=== PATIENT | male | born 1980 | race Caucasian/White ===

== ENCOUNTER 2022-01-14 11:18 | Emergency (ER) | payer SELFPAY ==
--- OUTSIDE RECORDS SUMMARY | 2022-01-14 11:28 | XMS REPORT | Continuity of Care Document ---
:1980 Author Organization [facility] t Address [address] [place] [address] Care Team Providers Name Role Phone PCP, PATIENT DOES NOT HAVE A Primary Care Physician UnavailPATRICE Frias Attending Clinician Unavailable Patrice Arita MD Attending Clinician TEJA STOLL Attending Clinician Unavailable Teja Stoll MD Attending Clinician RAGHAVENDRA WHITNEY Attending Clinician Unavailable Raghavendra Whitney MD Attending Clinician Reginald Mathias MD Attending Clinician Musa Parikh DO Attending Clinician Juarez Rivas Attending Clinician Doctor Unassigned, [place] Attending Clinician Unavailable PATRICE ARITA Admitting Clinician Unavailable TEJA STOLL Admitting Clinician Unavailable RAGHAVENDRA WHITNEY Admitting Clinician Unavailable Payers Payer Name Policy Type Policy Number Effective Date Expiration Date S ource Problems Condition Condition Condition Status Onset Resolution Last Treating Co mments Source Name Details Category Date Date Treatment Clinician Date Abdominal Abdominal Disease Active Overview: Univers pain, pain, 07-20 Formattin ity of right right 00:00: g of this [facility] 00 note Medical quadrant quadrant might be Bran ch different from the original. Added automatic ally from request for surgery [id number] Allergies, Adverse Reactions, Alerts Allergy Allergy Status Severity Reaction(s) Onset Inactive Treating Comm ents Source Name Type Date Date Clinician SULFA Drug Active Anaphylaxis Unive rs (SULFONA Class 5-01 ity of MIDE 00:00: [place] ANTIBIOT 00 Medical ICS) Branch Sulfa Propensi Active Anaphylaxis Uni vers (Sulfona ty to 5-01 ity of mide adverse 00:00: [place] Antibiot reaction 00 Medica l ics) s Branch Sulfa Propensi Active Anaphylaxis Uni vers (Sulfona ty to 5-01 ity of mide adverse 00:00: [place] Antibiot reaction 00 Medica l ics) s Branch Social History Social Habit Start Date Stop Date Quantity Comments Source Exposure to 2021-12-13 2021-12-23 Not sure [facility] SARS-CoV-2 (event) 00:00:00 14:29:00 Medica l Branch Sex Ass[birth year] At [birth year] [facility] 00:00:00 00:00:00 Medical Branch Smoking Status Start Date Stop Date Source Tobacco smoking consumption [facility] Medical unknown Branch Medications Ordered Filled Start Stop Current Ordering Indication Dosage Frequency Signature Comments Components Source Medication Medication Date Date Medication? Clinician (SIG) Name Name maalox:diph 2021-02- No 15mL 15 mL, Uni vers enhydrAMINE 02-22 Oral, ity of :lidocaine 22:15: 22:14 ONCE, 1 Nicholas as 2 % viscous 00 :00 dose, On Medi sharmila 1:1:1 Fri Branch (FIRST[facility]OUT 12/23/21 at [facility]) 1715, oral Routine suspension 15 mL NaCl 0.9% 2021-02- No 1000mL at 999 Uni vers (NS) IV 02-20 mL/hr, ity of infusion 06:15: 06:48 [place]ven[place] 1,000 mL 00 :00 s, ONCE, 1 Medic al dose, On Branch 12/21/21 at 0115, JEAN PIERRE LORazepam 2021-02- No 1mg 1 mg, Slow U nivers (ATIVAN) 02-20 IV Push, ity of injection 1 05:15: 05:24 ONCE, 1 [place] mg 00 :00 dose, On Medical Wed Branch 12/21/21 at 0015, STAT ibuprofen Yes [id number] 800mg Take 1 Un ajit 800 mg 9-04 tablet by ity of tablet 00:00: mouth [place] 00 every 6 Medical (six) Branch hours as needed for Pain (scale 4-6). ibuprofen 0 202- No [id number] 800mg Take 1 U nivers 800 mg 9-05 30- tablet by ity of tablet 00:00: 00:00 mouth [place] 00 :00 every 6 Medical (six) Branch hours as needed for Pain (scale 4-6). azithromyci Yes [id number] 250mg Take 1 Univers n 5-03 tablet by ity of (ZITHROMAX 00:00: mouth [place] Z-TRENT) 250 00 SEE-INSTRU Med ical mg tablet CTIONS. Branch Take 500 mg day 1, then 250 mg days 2 to 5. predniSONE Yes [id number] 40mg Take 2 U nivers 20 mg 5-03 tablets by ity of tablet 00:00: mouth [place] 00 daily. Medical Branch albuterol Yes [id number] 2{puff} Inhale 2 Univers 90 5-03 Puffs ity of mcg/actuati 00:00: every 4 [place] as on inhaler 00 (four) Medical hours as Branch needed for Wheezing or Shortness of Breath. azithromyci Yes [id number] 250mg Take 1 Univers n 5-03 tablet by ity of (ZITHROMAX 00:00: mouth [place] Z-TRENT) 250 00 SEE-INSTRU Med ical mg tablet CTIONS. Branch Take 500 mg day 1, then 250 mg days 2 to 5. predniSONE Yes [id number] 40mg Take 2 U nivers 20 mg 5-03 tablets by ity of tablet 00:00: mouth [place] 00 daily. Medical Branch albuterol Yes [id number] 2{puff} Inhale 2 Univers 90 5-03 Puffs ity of mcg/actuati 00:00: every 4 Nicholas as on inhaler 00 (four) Medical hours as Branch needed for Wheezing or Shortness of Breath. albuterol Yes [id number] 2{puff} Inhale 2 Univers 90 5-03 Puffs ity of mcg/actuati 00:00: every 4 Nicholas as on inhaler 00 (four) Medical hours as Branch needed for Wheezing or Shortness of Breath. albuterol Yes [id number] 2{puff} Inhale 2 Univers 90 5-03 Puffs ity of mcg/actuati 00:00: every 4 Nicholas as on inhaler 00 (four) Medical hours as Branch needed for Wheezing or Shortness of Breath. azithromyci 2021- No [id number] 250mg Take 1 Univers n 06-21 tablet by ity of (ZITHROMAX 00:00: 00:00 mouth [place] Z-TRENT) 250 00 :00 SEE-INSTRU Med ical mg tablet CTIONS. Branch Take 500 mg day 1, then 250 mg days 2 to 5. predniSONE 2021- No [id number] 40mg Take 2 Univers 20 mg 06-21 tablets by ity of tablet 00:00: 00:00 mouth [place] 00 :00 daily. Medical Branch ibuprofen 2020- No 600mg 600 mg, Uni vers (IBU) 03-18 Oral, ity of tablet 600 21:30: 09:29 ONCE, 1 Nicholas as mg 00 :00 dose, [facility] 03/18/20 at Branch 1530, JEAN PIERRE ibuprofen Yes [id number] 600mg Take 1 Univers 600 mg 03-18 [id number] tablet by ity of tablet 00:00: mouth [place] 00 every 6 Medical (six) Branch hours as needed for Pain (scale 4-6). ibuprofen Yes [id number] 600mg Take 1 Univers 600 mg 03-18 [id number] tablet by ity of tablet 00:00: mouth [place] 00 every 6 Medical (six) Branch hours as needed for Pain (scale 4-6). ibuprofen Yes [id number] 600mg Take 1 Univers 600 mg - [id number] tablet by ity of tablet 00:00: mouth [place] 00 every 6 Medical (six) Branch hours as needed for Pain (scale 4-6). ibuprofen Yes [id number] 600mg Take 1 Univers 600 mg - [id number] tablet by ity of tablet 00:00: mouth [place] 00 every 6 Medical (six) Branch hours as needed for Pain (scale 4-6). ibuprofen 2021- No [id number] 600mg Take 1 Univers 600 mg 03-18 [id number] tablet by arianna o f tablet 00:00: 00:00 [facility] [place] 00 :00 every 6 Medical (six) Branch hours as needed for Pain (scale 4-6). No known No Univers medications ity [facility] No known No Univers medications ity [facility] No known No [facility] Signs Vital Name Observation Time Observation Value Comments Source Heart rate 2021-12-23 22:15:00 95 /min [facility]i ty [facility] [place] [facility] Oxygen saturation in 2021-12-23 22:15:00 98 /min University of Arterial blood by [facility] Pulse oximetry Branch Systolic blood 2021-12-23 19:30:00 135 mm[Hg] Univer sity of [facility] Diastolic blood 2021-12-23 19:30:00 99 mm[Hg] Unive rsity of [facility] Body temperature 2021-12-23 19:30:00 36.61 [facility] Univ ers[facility] [place] [facility] Respiratory rate 2021-12-23 19:30:00 20 /min Univ ers[facility] Body weight 2021-12-23 19:30:00 65.772 kg Universi ty [facility] [place] [facility] BMI 2021-12-23 19:30:00 23.40 kg/m2 Universi ty [facility] Heart rate 2021-12-21 07:45:00 108 /min Universi ty [facility] [place] [facility] Respiratory rate 2021-12-21 07:45:00 18 /min [facility] O[facility] saturation in 2021-12-21 07:45:00 100 /min University of Arterial blood by [facility] Pulse oximetry Branch Systolic blood 2021-12-21 06:01:00 136 mm[Hg] Univer sity of [facility] Diastolic blood 2021-12-21 06:01:00 86 mm[Hg] Unive rsity of [facility] Body temperature 2021-12-21 04:48:00 36.89 [facility] Univ [facility] [place] [facility] Body height 2021-12-21 04:48:00 167.6 cm Universi ty [facility] [place] [facility] Body weight 2021-12-21 04:48:00 65.772 kg [facility]i [facility] [place] [facility] BMI 2021-12-21 04:48:00 23.40 kg/m2 [facility] [place] [facility] Heart rate 2021-10-24 02:37:00 122 /min [facility] [place] [facility] Body temperature 2021-10-24 02:37:00 37.56 [facility] [place] [facility] Respiratory rate 2021-10-24 02:37:00 18 /min Univ [facility] [place] [facility] Body height 2021-10-24 02:37:00 167.6 cm [facility] [place] [facility] Body weight 2021-10-24 02:37:00 68.04 kg [facility] [place] [facility] BMI 2021-10-24 02:37:00 24.21 kg/m2 [facility] [place] [facility] Oxygen saturation in 2021-10-24 02:37:00 98 /min University of Arterial blood by [facility] Pulse oximetry Branch Systolic blood 2020-06-21 16:52:00 112 mm[Hg] Univer sity of [facility] [place] [facility] Diastolic blood 2020-06-21 16:52:00 88 mm[Hg] Unive rsity [facility] [place] [facility] Heart rate 2020-06-21 16:52:00 79 /min [facility] [place] [facility] Body temperature 2020-06-21 16:52:00 36.5 [facility] [place] [facility] Respiratory rate 2020-06-21 16:52:00 18 /min Univ [facility] [place] [facility] Body weight 2020-06-21 16:52:00 58.968 kg [facility] [place] [facility] BMI 2020-06-21 16:52:00 22.31 kg/m2 [facility] [place] [facility] Oxygen saturation in 2020-06-21 16:52:00 99 /min University of Arterial blood by [facility] Pulse oximetry Branch Systolic blood 2020-04-01 16:34:00 120 mm[Hg] Univer sity [facility] [place] [facility] Diastolic blood 2020-04-01 16:34:00 76 mm[Hg] Unive rsity [facility] [place] [facility] Heart rate 2020-04-01 16:34:00 84 /min [facility] [place] [facility] Body temperature 2020-04-01 16:34:00 36.94 [facility] [place] [facility] Respiratory rate 2020-04-01 16:34:00 18 /min Univ [facility] [place] [facility] Body weight 2020-04-01 16:34:00 58.968 kg [facility] [place] [facility] BMI 2020-04-01 16:34:00 22.31 kg/m2 [facility] [place] [facility] Oxygen saturation in 2020-04-01 16:34:00 100 /min University of Arterial blood by [facility] sharmila Pulse oximetry Branch Heart rate 2020-03-18 19:45:00 81 /min [facility] [place] [facility] Respiratory rate 2020-03-18 19:45:00 24 /min Univ [facility] [place] [facility] Oxygen saturation in 2020-03-18 19:45:00 97 /min University of Arterial blood by [facility] sharmila Pulse oximetry Branch Body temperature 2020-03-18 19:10:00 36.78 [facility] [place] [facility] Body height 2020-03-18 19:10:00 162.6 cm [facility] [place] [facility] Body weight 2020-03-18 19:10:00 58.968 kg [facility] [place] [facility] BMI 2020-03-18 19:10:00 22.31 kg/m2 [facility] [place] [facility] Systolic blood 2020-03-18 19:08:00 130 mm[Hg] Univer sity [facility] [place] [facility] Diastolic blood 2020-03-18 19:08:00 98 mm[Hg] Unive rsity [facility] [place] [facility] Systolic blood 2019-10-29 11:05:00 125 mm[Hg] Univer [facility]ity [facility] [place] [facility] Diastolic blood 2019-10-29 11:05:00 65 mm[Hg] Unive rs[facility] [place] [facility] Heart rate 2019-10-29 11:05:00 114 /min [facility] [place] [facility] Body temperature 2019-10-29 11:05:00 36.61 [facility] [place] [facility] Respiratory rate 2019-10-29 11:05:00 20 /min Univ [facility] [place] [facility] Body weight 2019-10-29 11:05:00 63.504 kg [facility] [place] [facility] BMI 2019-10-29 11:05:00 21.93 kg/m2 [facility] [place] [facility] Oxygen saturation in 2019-10-29 11:05:00 99 /min University of Arterial blood by [facility] Pulse oximetry Branch Procedures Procedure Date / Time Performing Clinician Source Performed URINE DRUG (IMMUNOASSAY) 2021-12-23 20:38:00 Patrice Arita [facility] DRUG [facility] SCREEN URINALYSIS 2021-12-23 20:07:00 Patrice Arita [facility] LIPASE 2021-12-23 20:01:00 Patrice Arita [facility] TROPONIN I 2021-12-23 20:01:00 Patrice Arita [facility] COMP. METABOLIC PANEL 2021-12-23 20:01:00 Patrice Arita [facility] ([id number]) [facility] CBC WITH DIFF 2021-12-23 20:01:00 Patrice Arita [facility] XR CHEST 2 VW 2021-12-23 19:52:23 Patrice Arita [facility] CONSENT/REFUSAL FOR 2021-12-23 19:09:39 Doctor Unassigned, No Un [facility] DIAGNOSIS AND TREATMENT Name [facility] EKG-12 LEAD 2021-12-21 08:05:19 Teja Stoll [facility] URINALYSIS 2021-12-21 06:48:00 Teja Stoll [facility] URINE DRUG (IMMUNOASSAY) 2021-12-21 06:48:00 [facility] X[facility] CHEST 2 VW 2021-12-21 05:20:08 Teja Stoll [facility] LIPASE 2021-12-21 05:01:00 Teja Stoll [facility] TROPONIN I 2021-12-21 05:01:00 Teja Stoll [facility] COMP. METABOLIC PANEL 2021-12-21 05:01:00 Teja Stoll [facility] ([id number]) [facility] CBC WITH DIFF 2021-12-21 05:01:00 Teja Stoll [facility] NOTICE OF PRIVACY 2021-12-21 04:44:04 [facility]REFUSAL FOR 2021-12-21 04:42:41 Doctor Unassigned, No Un [facility] [place] DIAGNOSIS [facility] TREATMENT Name Medical Branch XR ELBOW <3 VW RIGHT 2021-10-24 03:19:[address] [facility] NOTICE OF PRIVACY 2021-10-24 02:35:27 Doctor Unassigned, No [facility] CONSENT/REFUSAL FOR 2021-10-24 02:32:49 Doctor Unassigned, No Un [facility] [place] DIAGNOSIS AND TREATMENT Name Medical Branch XR CHEST 2 VW 2020-06-21 17:20:34 [facility] METABOLIC PANEL 2020-04-01 18:20:00 Musa Parikh [facility] ([id number]) Medical Branch ETHANOL 2020-04-01 18:20:00 Parikh, [facility] [place] [facility] CT HEAD WO CONTRAST 2020-04-01 17:54:03 Musa Parikh [facility] SALICYLATE 2020-04-01 17:31:00 Singer [facility] XR CHEST 1 VW 2020-03-18 20:02:51 Markus, [facility] XR HAND <3 VW RIGHT 2020-03-18 20:02:51 Juarez Aparicio [facility] XR WRIST <3 VW RIGHT 2020-03-18 20:02:51 Juarez Aparicio [facility] HEAD WO CONTRAST 2020-03-18 19:52:26 Juarez Aparicio [facility] EMERGENCY DEPARTMENT 2019-12-05 05:01:00 [facility]igned, [facility] Name Medical Branch AR RESUP NPTERF WND BODY 2019-10-29 11:39:00 Raghavendra Whitney [facility] [place] 2.6-7.5 CM Medical Branch AMENDMENT REQUEST/DENIAL 2016-04-16 06:01:00 Doctor Unassigned, No [facility] Encounters Start End Encounter Admission Attending Care Care Encounter Source Date/Time Date/Time Type Type Clinicians Facility Department ID 2020-12-19 Emergency [facility] [id number] Univers 16:43:23 [facility] 2020-12-18 Emergency [facility] [id number] Univers 23:03:45 [facility] 2020-12-18 Emergency [facility] [id number] Univers 20:20:27 [facility] 2020-12-17 Emergency [facility] [id number] Univers 16:30:30 [facility] 2021-12-23 2021-12-23 [facility] ERT [id number] Univers 14:15:00 18:00:00 PATRICE [facility] 2021-12-23 2021-12-23 Emergency [facility] [id number] Univers 14:15:00 18:00:00 Patrice ZABALA [id number] i ty Kali LEIVA 4.2.7.2.686 [facility] [id number] [address] 2021-12-20 2021-12-21 Emergency X DODIE, [facility] ERT [id number] Univers 23:58:00 03:22:00 TEJA [facility] 2021-12-20 2021-12-21 Emergency Dodie, [facility] [id number] Univers 23:58:00 03:22:00 Teja ZABALA [id number] ity [facility] 4.2.7.2.686 [facility] [id number] [address] 2021-10-23 2021-10-23 Emergency [facility] ERT [id number] Univers 21:43:00 23:15:00 FABRICIOLI ity of [facility] 2021-10-23 2021-10-23 Emergency [facility] [id number] Univers 21:43:00 23:15:00 Keyurizzygilma Hazel VJ [id number] ity of [place] 4.2.7.2.686 [facility] [id number] [address] 2020-06-212020-06-21 Emergency Stew, [facility] [id number] Univers 11:55:00 13:03:00 Reginald Zabala [id number] i ty of [place] 4.2.7.[address] [facility] [id number] [place] [address] Branch 2020-04-01 2020-04-01 Emergency , [facility] [id number] Univers 10:47:00 13:47:00 Musa Vj 350.1.13.10 i ty of [place] 4.2.7.[address] [facility] [id number] [place] [address] Branch 2020-03-18 2020-03-18 Emergency Reginald Mathias [facility] [id number] Univers 13:07:00 14:37:00 Juarez Aparicio 350.1.13.10 ity of [place] 4.2.7.[address] [facility] [id number] [place] [address] Branch 2019-12-05 2019-12-05 Orders Doctor GERHARD [id number] Univers 00:00:00 00:00:00 Only Unassigned, KRISTINE [id number] ity of [place] [facility] 4.2.7.2.686 Nicholas as [id number] [place] [address] Branch 2019-10-29 2019-10-29 Emergency [facility] [id number] Univers 05:57:00 06:39:00 Raghavendra Zabala [id number] ity of [place] 4.2.7.2.686 [facility] [phone] [place] [address] Branch 2016-04-16 2016-04-16 Orders Doctor GERHARD [id number] Univers 00:00:00 00:00:00 Only Unassigned, KRISTINE [id number] ity of [place] [facility] 4.2.7.2.686 [place] as [id number] [address] Results Test Description Test Time Test Comments Results Result Comments Source TROPONIN I 2021-12-21 05:39:18 Test Item Value Reference Range Interpretation Comme nts TROPONIN I (test code = 0.006 ng/mL See_Comment [Au tomated message] The 5598064252) system which ge nerated this result tra nsmitted reference range : <=0.034. The reference r natasha was not used to int erpret this result as normal/abnormal . ROXANNA (test code = ROXANNA) Reference (Normal) Range (defined by the 99th percentile reference limit): <= 0.034 ng/mL Note: Cardiac troponin begins to rise 3-4 hours after the onset of ischemia. Repeat in 4-6 hours if the sample was drawn within 3-4 hours of the onset of the symptom and found normal. Diagnosis of myocardial injury is made with acute changes in cTn concentrations with at least one serial sample above the 99th percentile upper reference limit (URL), taken together with the patient's clinical presentation. Biotin has been reported to cause a negative bias, interpret results relative to patient's use of biotin. Lab Interpretation Normal (test code = 14884-1) [facility]. METABOLIC PANEL ([id number])2021-12-21 05:28:02 Test Item Value Reference Range Interpretation Comments NA (test code = 137 mmol/L 135-145 3234208562) K (test code = 4.3 mmol/L 3.5-5.0 4375473970) CL (test code = 101 mmol/L 98-108 1132207220) CO2 TOTAL (test code = 22 mmol/L 23-31 L 3258241484) AGAP (test code = 2-16 1902229425) BUN (test code = 13 mg/dL 7-23 0400824914) GLUCOSE (test code = 140 mg/dL 70-110 H 6407010785) CREATININE (test code = 1.18 mg/dL 0.60-1.25 4634390178) TOTAL BILI (test code = 1.2 mg/dL 0.1-1.1 H 9691455217) CALCIUM (test code = 10.5 mg/dL 8.6-10.6 0976126223) T PROTEIN (test code = 8.6 g/dL 6.3-8.2 H 6590323157) ALBUMIN (test code = 5.3 g/dL 3.5-5.0 H 2834517869) ALK PHOS (test code = 79 U/L 34-122 2274329111) ALTv (test code = 22 U/L 5-50 1742-6) AST(SGOT) (test code = 34 U/L 13-40 8413284771) eGFR (test code = mL/min/1.73m2 9889174082) ROXANNA (test code = ROXANNA) Association of Glomerular Filtration Rate (GFR) and Staging of Kidney Disease* + --+ --+ ------+| GFR (mL/min/1.73 m2) ?| With Kidney Damage ?| ?Without Kidney Damage+ --------+ --------+ +| ?>90 ?| ?Stage one ?| ? Normal ?+ ---+ ---+ -------+| ?60-89 ?| ?Stage two ?| ? Decreased GFR ? + --+ --+ ------+| ?30-59 ?| ?Stage three ?| ? Stage three ? + --+ --+ ------+| ?15-29 ?| ?Stage four ? | ? Stage four ?+ ---+ ---+ -------+| ?<15 (or dialysis) ? ?| ?Stage five ? | ? Stage five ?+ ---+ ---+ -------+ *Each stage assumes the associated GFR level has been in effect for at least three months. ?Stages 1 to 5, with or without kidney disease, indicate chronic kidney disease. Notes: Determination of stages one and two (with eGFR >59mL/min/1.73 m2) requires estimation of kidney damage for at least three months as defined by structural or functional abnormalities of the kidney, manifested by either:Pathological abnormalities or Markers of kidney damage (including abnormalities in the composition of the blood or urine or abnormalities in imaging tests). Lab Interpretation Abnormal (test code = 51346-6) [facility]17 Test Item Value Reference Range Interpretation Comments LIPASE (test code = 2067103221) 92 U/L 0-220 Lab Interpretation (test code = Normal 26884-8) [facility] [id number] 05:15:01 Test Item Value Reference Range Interpretation Comments WBC (test code = See_Comment [Automated 2890-2) message] The sy stem which generated this result transmitted reference range : 4.20 - 10.70 10*3/?L. The reference range was not used to interpret this result as normal/abnormal . RBC (test code = See_Comment [Automated 789-8) message] The sy stem which generated this result transmitted reference range : 4.26 - 5.52 10*6/?L. The reference range was not used to interpret this result as normal/abnormal . HGB (test code = 17.2 g/dL 12.2-16.4 H 718-7) HCT (test code = 48.2 % 38.4-49.3 4544-3) MCV (test code = 88.9 fL 81.7-95.6 787-2) MCH (test code = 31.7 pg 26.1-32.7 785-6) MCHC (test code = 35.7 g/dL 31.2-35.0 H 786-4) RDW-SD (test code = 38.5 fL 38.5-51.6 49395-5) RDW-CV (test code = 11.9 % 12.1-15.4 L 788-0) PLT (test code = See_Comment H [Automated 777-3) message] The sy stem which generated this result transmitted reference range : 150 - 328 10*3/ ?L. The reference r natasha was not used to interpret this result as normal/abnormal . MPV (test code = 9.5 fL 9.8-13.0 L 08936-7) NRBC/100 WBC (test See_Comment [Automat ed code = 7869873924) message] The system which generated this result transmitted reference range : 0.0 - 10.0 /100 WBCs. The refer ence range was not u sed to interpret th is result as normal/abnormal . NRBC x10^3 (test code See_Comment [Auto mated = 5624992518) message] The s ystem which generated this result transmitted reference range : 10*3/?L. The reference range was not used to interpret this result as normal/abnormal . GRAN MAT (NEUT) % 58.8 % (test code = 770-8) IMM GRAN % (test code 0.40 % = 2931584279) LYMPH % (test code = 29.2 % 736-9) MONO % (test code = 10.1 % 5905-5) EOS % (test code = 0.8 % 713-8) BASO % (test code = 0.7 % 706-2) GRAN MAT x10^3(ANC) 5.84 10*3/uL 1.99-6.95 (test code = 3676072213) IMM GRAN x10^3 (test 0.04 10*3/uL 0.00-0.06 code = 4193171053) LYMPH x10^3 (test code 2.90 10*3/uL 1.09-3.23 = 731-0) MONO x10^3 (test code 1.00 10*3/uL 0.36-1.02 = 742-7) EOS x10^3 (test code = 0.08 10*3/uL 0.06-0.53 711-2) BASO x10^3 (test code 0.07 10*3/uL 0.01-0.09 = 704-7) Lab Interpretation Abnormal (test code = 20901-9) [facility] 2 [id number] 17:28:22 No acute cardiopulmonary abnormality. Emphysematous changes. Preliminary Report Dictated by Resident: Durga Ward MD., have reviewed this study and agree with theabove report.EXAM: XR CHEST 2 VW HISTORY: 39 years-old Male; chest pain left upper chest pain and shortnessof breath starting 2 hours ago. TECHNIQUE: Frontal and lateral views of the chest. COMPARISON: Chest radiog raph dated 03/18/2020, 07/20/2017 FINDINGS: The lungs are clear and hyperinflated. Bullous changes are redemonstratedin the right lung apex. Bibasilar apical thickening is noted. No focalconsolidation, pleural effusion, or pneumothorax is visualized. The cardiomediastinal silhouette is normal. No acute osseous abnormality is present. [facility], [facility]iant Results Inft User - 06/21/2020 12:29 PM CDTEXAM: XR CHEST 2 VWHISTORY: 39 years-old Male; chest pain left upper chest pain and shortnessof breath starting 2 hours ago.TECHNIQUE: Frontal and lateral views of the chest.COMPARISON: Chest radiograph dated 03/18/2020, 07/20/2017FINDINGS:The lungs are clear and hyperinflated. Bullous changes are redemonstratedin theright lung apex. Bibasilar apical thickening is noted. No focalconsolidation, pleural effusion, or pneumothorax is visualized. The cardiomediastinal silhouette is normal. No acute osseous abnormality is present. IMPRESSIONNo acute cardiopulmonary abnormality.Emphysematous changes.Preliminary Report Dictated by Resident: Robert Wilson, Durga Bustamante MD., have reviewed this study and agree withtheabove report.[facility] CenterACETAMINOPHEN2021-02-11 18:50:00 Test Item Value Reference Range Interpretation Comments ACETAMINOP (test code = <10.0 10-30 L [id number]) ROXANNA (test code = ROXANNA) Toxic: Greater than 200 ug/mL @ 4 hour post ingestion or greater than 50 ug/mL @ 12 hour post ingestion Lab Interpretation (test Abnormal code = 15926-9) [facility] CenterSALICYLATE2021-02-11 18:50:00 Test Item Value Reference Range Interpretation Comments SALICYLATE (test code <10 mg/L = [id number]) ROXANNA (test code = ROXANNA) Therapeutic Range: ? Analgesic and Antipyretic Use ? 20-100 mg/L ? ? Anti-Inflammatory Use ? 100-250 mg/L Toxic Range: ? Greater than 300 mg/L [facility] CenterETHANOL2021-02-11 18:29:00 Test Item Value Reference Range Interpretation Comments ALCOHOL (test code = 87 mg/dL [id number]) ROXANNA (test code = ROXANNA) <10 [id number] Toxic>100 Depression of SITE SAFETY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
--- NOTE | 2022-01-14 13:33 | RAD REPORT ---
EXAM DESCRIPTION: RAD - Chest Pa And Lat (2 Views) - 01/14/2022 1:14 pm CLINICAL HISTORY: COUGH COMPARISON: Chest Pa And Lat (2 Views) dated 03/15/2016 FINDINGS: Lines: None. Lungs: No evidence of edema or pneumonia. Enlarging bulla in the right lung apex. Pleural: No significant pleural effusions or pneumothorax. Cardiac: The heart size is within normal limits. Mediastinum: Within normal limits. Bones: No acute fractures. Other: None IMPRESSION: No acute cardiopulmonary disease. Enlarging bulla in the right lung apex. No pneumothora x.
--- NOTE | 2022-01-14 14:00 | ER ---
Nurse's Notes [facility] Name: Robby Valdez Jr Age: 41 yrs Sex: Male : 1980 Arrival Date: 01/14/2022 Time: 11:31 Bed IW2 Private MD: Diagnosis: Cough Presentation: 01/14 11:41 Chief complaint: Patient states: Pt reports cough, congestion, chills, body aches x1 kb3 week. Worse x2 days. Coronavirus screen: Vaccine status: Patient reports receiving the 2nd dose of the covid vaccine. Client denies travel out of the [place] in the last 14 days. Ebola Screen: Patient negative for fever greater than or equal to 101.5 degrees Fahrenheit, and additional compatible Ebola Virus Disease symptoms Patient denies exposure to infectious person. Patient denies travel to an Ebola-affected area in the 21 days before illness onset. Initial Sepsis Screen: Does the patient meet any 2 criteria? No. Patient's initial sepsis screen is negative. Does the patient have a suspected source of infection? No. Patient's initial sepsis screen is negative. Risk Assessment: Do you want to hurt yourself or someone else? Patient reports no desire to harm self or others. Onset of symptoms was January 07, 2022. 11:41 Method Of Arrival: Ambulatory kb3 11:41 Acuity: CROW 4 kb3 Triage Assessment: 11:43 General: Appears in no apparent distress. Behavior is calm, cooperative. Pain: Denies kb3 pain. Respiratory: Reports cough that is Breath sounds are clear. Historical: - Allergies: 11:43 Sulfa (Sulfonamide Antibiotics); kb3 - Home Meds: 11:43 omeprazole 20 mg Oral cpDR 1 cap once daily [Active]; kb3 - PMHx: 11:43 Cirrhosis; enlarged prostate; GERD; kb3 - Immunization history:: Adult Immunizations up to date, Client reports receiving the 2nd dose of the Covid vaccine, Last tetanus immunization: unknown. - Social history:: Smoking status: Patient reports the use of cigarette tobacco products, smokes one pack cigarettes per day. Screenin:50 Abuse screen: Denies threats or abuse. Denies injuries from another. Nutritional kb3 screening: No deficits noted. Tuberculosis screening: No symptoms or risk factors identified. Fall Risk None identified. Assessment: 11:50 General: See triage note. kb3 11:50 Cardiovascular: Capillary refill < 3 seconds Patient's skin is warm and dry. kb3 Respiratory: Airway is patent Respiratory effort is even, unlabored, Breath sounds are clear. Vital Signs: 11:41 BP 158 / 113; Pulse 128; Resp 20; Temp 99.1; Pulse Ox 100% ; Weight 63.5 kg; Height 5 kb3 ft. 6 in. (167.64 cm); Pain 2/10; 14:29 BP 150 / 95; Pulse 104; Resp 20; Pulse Ox 99% ; kb3 11:41 Body Mass Index 22.60 (63.50 kg, 167.64 cm) kb3 ED Course: 11:31 Patient arrived in ED. as 11:32 Anoop Collins DO is Attending Physician. ms3 11:43 Triage completed. kb3 11:43 Arm band placed on right wrist. kb3 11:50 Patient has correct armband on for positive identification. kb3 11:50 No provider procedures requiring assistance completed. Patient did not have IV access kb3 during this emergency room visit. 13:16 Chest Pa And Lat (2 Views) XRAY In Process Unspecified. EDMS 13:58 Mary Carmen Garza, RN is Primary Nurse. kb3 13:59 Wilfredo Cabrera DO is Referral Physician. ms3 Administered Medications: No medications were administered Medication: 11:50 VIS not applicable for this client. kb3 Outcome: 13:59 Discharge ordered by . ms3 14:30 Discharged to home ambulatory. kb3 14:30 Condition: stable 14:30 Discharge instructions given to patient, Instructed on discharge instructions, follow up and referral plans. Demonstrated understanding of instructions, follow-up care, medications. 14:30 Patient left the ED. kb3 Signatures: Dispatcher [employer] EDMS Mabel Elliott as Anoop Collins DO DO ms3 Mary Carmen Garza, RN RN kb3 Corrections: (The following items were deleted from the chart) 11:44 11:43 Allergies: Patient will not tell me, states he is highly allergic to several kb3 medications but refuses to tell me what; kb3
--- NOTE | 2022-01-14 14:00 | EDPHYS ---
Physician Documentation [facility] Name: Robby Valdez Jr Age: 41 yrs Sex: Male : 1980 Arrival Date: 01/14/2022 Time: 11:31 Bed IW2 Private MD: ED Physician Anoop Collins HPI: 01/14 12:35 This 41 yrs old Male presents to ER via Ambulatory with complaints of Cough, Congestion.ms3 12:35 The patient or guardian reports cough, that is intermittent. Onset: The ms3 symptoms/episode began/occurred 1 week(s) ago. Severity of symptoms: At their worst the symptoms were severe, in the emergency department the symptoms have improved, moderately. Modifying factors: The symptoms are alleviated by nothing, the symptoms are aggravated by. Associated signs and symptoms: The patient has no apparent associated signs or symptoms. Historical: - Allergies: 11:43 Sulfa (Sulfonamide Antibiotics); kb3 - Home Meds: 11:43 omeprazole 20 mg Oral cpDR 1 cap once daily [Active]; kb3 - PMHx: 11:43 Cirrhosis; enlarged prostate; GERD; kb3 - Immunization history:: Adult Immunizations up to date, Client reports receiving the 2nd dose of the Covid vaccine, Last tetanus immunization: unknown. - Social history:: Smoking status: Patient reports the use of cigarette tobacco products, smokes one pack cigarettes per day. ROS: 12:35 Constitutional: Negative for fever, and chills. Neck: Negative for injury, pain, and ms3 swelling, Cardiovascular: Negative for chest pain, and palpitations. Abdomen/GI: Negative for abdominal pain, nausea, vomiting, diarrhea, and constipation, MS/Extremity: Negative for injury and deformity, Skin: Negative for injury, rash, and discoloration. 12:35 Respiratory: Positive for cough. 12:35 All other systems are negative. Exam: 12:35 Constitutional: This is a well developed, well nourished patient who is awake, alert, ms3 and in no acute distress. Head/Face: Normocephalic, atraumatic. Neck: Trachea midline, no cervical lymphadenopathy. Supple, full range of motion without nuchal rigidity, or vertebral point tenderness. No Meningismus. Chest/axilla: Normal chest wall appearance and motion. Nontender with no deformity. Cardiovascular: Regular rate and rhythm with a normal S1 and S2. No gallops, murmurs, or rubs. Normal PMI, no JVD. No pulse deficits. 12:35 Back: No spinal tenderness. No costovertebral tenderness. Full range of motion. Skin: Warm, dry with normal turgor. Normal color with no rashes, no lesions, and no evidence of cellulitis. MS/ Extremity: Pulses equal, no cyanosis. Neurovascular intact. Full, normal range of motion. 12:35 Respiratory: the patient does not display signs of respiratory distress, Respirations: normal, Breath sounds: are clear throughout. Vital Signs: 11:41 BP 158 / 113; Pulse 128; Resp 20; Temp 99.1; Pulse Ox 100% ; Weight 63.5 kg; Height 5 kb3 ft. 6 in. (167.64 cm); Pain 2/10; 14:29 BP 150 / 95; Pulse 104; Resp 20; Pulse Ox 99% ; kb3 11:41 Body Mass Index 22.60 (63.50 kg, 167.64 cm) kb3 MDM: 11:47 Patient medically screened. ms3 12:35 Differential Diagnosis: Bronchitis Upper Respiratory Infection Viral Syndrome Pneumonia.ms3 14:05 Data reviewed: vital signs, nurses notes, radiologic studies, plain films. ED course: ms3 Discussed chest x-ray results with patient. Discussed enlarging bulla in the right apex of his lung. Patient understands and agrees with plan to follow-up in 2 to 3 days. All questions were answered. Return precautions discussed include worsening symptoms, or any other concerns. On reevaluation patient is alert and oriented x4, in no apparent distress, nontoxic, ambulatory in the emergency department, speaking full sentences. 01/14 11:43 Order name: Chest Pa And Lat (2 Views) XRAY; Complete Time: 13:52 ms3 Administered Medications: No medications were administered Disposition Summary: 01/14/22 13:59 Discharge Ordered Location: Home ms3 Condition: Stable ms3 Diagnosis - Cough ms3 Followup: ms3 - With: Wilfredo Cabrera DO - When: 2 - 3 days - Reason: Recheck today's complaints Discharge Instructions: - Discharge Summary Sheet ms3 - Cough, Adult ms3 Forms: - Medication Reconciliation Form ms3 - Thank You Letter ms3 - Antibiotic Education ms3 - Prescription Opioid Use ms3 - Work release form kb3 Prescriptions: - benzonatate 200 mg Oral Capsule - take 1 capsule by ORAL route 3 times per day as needed; 20 capsule; Refills: 0, ms3 Product Selection Permitted Signatures: Dispatcher [employer] EDAnoop Ferrer DO DO ms3 Mary Carmen Garza, RN RN kb3 Corrections: (The following items were deleted from the chart) 11:44 11:43 Allergies: Patient will not tell me, states he is highly allergic to several kb3 medications but refuses to tell me what; kb3
[2022-01-14 14:38] VITALS: TEMP 99.1
[2022-01-14 14:40] VITALS: BP 150/95; O2SAT 99
== END 2022-01-14 14:30 | disposition home or self-care (01) ==
LOC: ER 11:18
DX: R05.9 Cough, unspecified (principal); F17.210 Nicotine dependence, cigarettes, uncomplicated; Z88.2 Allergy status to sulfonamides
CPT/HCPCS: 71046; 99283

== ENCOUNTER 2024-09-27 00:50 | Emergency (ER) | payer SELFPAY ==
--- OUTSIDE RECORDS SUMMARY | 2024-09-27 00:55 | XMS REPORT | Continuity of Care Document ---
Author Name Unknown Address [address] [facility] [address] [place] [address] [facility] Address [address] [facility] [address] [place] [address] Care Team Providers Care Tricot Knitter Name Role Phone PCP, PATIENT DOES NOT HAVE A Primary Care Physic iman Unavailable RANDI LANE Attending Clinician Unavailab RANDI Hendricks Attending Clinician Unavailab TINY Noble Attending Clinician UnaELIEZER Arechiga Attending Clinician Unavailable ELIEZER MATHIAS Attending Clinician Unavailable Eliezer Mathias MD Attending Clinician [phone] DO Attending Clinician [phone] Doctor Unassigned, [place] Attending Clinician U navailable DEVAN AKINS Attending Clinician Unavailable DEVAN AKINS Attending Clinician Unavailable Devan Akins DO Attending Clinician [phone] Campaigns, Generic Provider Attending Clinician Unavailable YUSEF COBB Attending Clinician Unavailable YUSEF COBB Attending Clinician Unavailable GUCCI DONOHUE Attending Clinician Unavailable CHAIM GALLARDO Attending Clinician Un available MD CRISELDA Attending Clinician Unavailab LYNDA Adkins Attending Clinician Unavailab PATRICE Muñoz Attending Clinician Unavail able Patrice Arita MD Attending Clinician [phone] KRISTI STOLL Attending Clinician Unavailable Kritsi Stoll MD Attending Clinician [phone] RAGHAVENDRA WHITNEY Attending Clinician Unavailable Raghavendra Whitney MD Attending Clinician [phone] Musa Parikh DO Attending Clinician [phone] Juarez Rivas Attending Clinician [phone] Doctor Unassigned, [place] Attending Clinician U TINY Martins Admitting Clinician UnaELIEZER Arechiga Admitting Clinician Unavailable DEVAN AKINS Admitting Clinician Unavailable PATRICE ARITA Admitting Clinician Unavail able KRISTI STOLL Admitting Clinician Unavailable RAGHAVENDRA WHITNEY Admitting Clinician Unavailable Payers Payer Name Policy Type Policy Number Effective Date Expirati on Date Source [facility] [id number] 2023 00:00:00 [employer] [id number] 2023 00:00:00 [facility] SISI ROGERS-C COPAY FOCUS 9 [id number] 2023 00:00:00 Problems Condition Name Condition Details Condition Category Status Onset Date Resolution Date Last Treatment Date Treating Clinician Comments Source Agitation Agitation Disease Active 06-29 00:00: 00 [facility] Pulmonary emphysema (multi HCC) Pulmonary emphysema (multi HCC) Disease Active 04-25 00:00: 00 Junie Willson - Externa l Moderate episode of recurrent major depressive disorder Moderate episode of recurrent major depressive disorder Disease Active 04-25 00:00: 00 Junie Willson - Externa l Abdominal pain, right upper quadrant Abdominal pain, right upper quadrant Disease Active 07-20 00:00: 00 Overview: Formattin g of this note might be different from the original. Added automatic ally from request for surgery [id number] [facility] Allergies, Adverse Reactions, Alerts Allergy Name Allergy Type Status Severity Reaction(s) Onset Date Inactive Date Treating Clinician Comments Source Sulfa Drugs Propensi ty to adverse reaction s Active Other 06-19 00:00: 00 Junie Willson - Externa l SULFA (SULFONA MIDE ANTIBIOT ICS) Drug Class Active Anaphylaxis 06-19 00:00: 00 [facility] Sulfa (Sulfona mide Antibiot ics) Propensi ty to adverse reaction s Active Anaphylaxis 06-19 00:00: 00 [facility] Social History Social Habit Start Date Stop Date Quantity Comments Source Sexual orientation Juarez karanhao Anamika - External History of tobacco use Cigarette Smoker [facility] History of Social function 2024-06-30 00:00:00 2024-06-30 00:00:00 [facility] Cigarettes smoked current (pack per day) - Reported 2024-06-29 00:00:00 2024-06-29 00:00:00 [facility] Cigarette pack-years 2024-06-29 00:00:00 2024-06-29 00:00:00 [facility] Alcoholic beverage intake 2024-06-29 00:00:00 2024-06-29 00:00:00 Ex-drinker (finding) [facility] Tobacco use and exposure 2023-04-26 00:00:00 2023-04-26 00:00:00 Smokeless tobacco non-user Junie Willson - External Alcohol intake 2023-04-26 00:00:00 2023-04-26 00:00:00 Current drinker of alcohol (finding) Junie Willson - External Exposure to SARS-CoV-2 (event) 2021-12-13 00:00:00 2021-12-23 14:29:00 Not sure [facility] Sex Assigned At 1980 00:00:00 1980 00:00:00 Junie Willson - External Smoking Status Start Date Stop Date Source Smokes tobacco daily 2024-06-29 00:00:00 [facility] Tobacco smoking consumption unknown [facility] Medications Ordered Medication Name Filled Medication Name Start Date Stop Date Current Medication? Ordering Clinician Indication Dosage Frequency Signature (SIG) Comments Components Source ARIPiprazol e 10 mg tablet 07-01 00:00: 00 Yes [id number] 10mg Take 1 tablet by mouth in the morning. [facility] amoxicillin -pot clavulanate 875-125 mg per tablet 07-01 00:00: 00 07-07 04:59 :00 Yes [id number] 1{tbl} Take 1 tablet by mouth in the morning and 1 tablet in the evening. Do all this for 5 days. [facility] methocarbam oL (ROBAXIN) tablet 500 mg methocarbam oL (ROBAXIN) tablet 500 mg 06-30 20:45: 00 06-30 21:03 :00 Yes 500mg 500 mg, Oral, Once, 1 dose, On Sun06/30/24 at 1545, Routine [facility] NaCl 0.9% (NS) IV infusion 1,000 mL 06-30 17:00: 00 06-30 19:29 :00 No 1000mL at 250 mL/hr, IV Infusion, CONTINUOUS , Starting on Sun06/30/24 at 1200, Until Sun06/30/24 at 1429, Routine [facility] acetaminoph en (TYLENOL) tablet 650 mg acetaminoph en (TYLENOL) tablet 650 mg 06-30 14:16: 30 07-01 00:54 :52 Yes 650mg 650 mg, Oral, Q6HPRN, Starting on Sun06/30/24 at 0916, Until Sun06/30/24 at 1954, Routine, Pain (scale 1-3), Pain (scale 4-6) [facility] NaCl 0.9% (NS) IV infusion 1,000 mL 06-30 13:30: 00 06-30 16:54 :32 No 1000mL at 150 mL/hr, IV Infusion, CONTINUOUS , Starting on Sun06/30/24 at 0830, Until Sun06/30/24 at 1154, Routine [facility] mirtazapine (REMERON) tablet 30 mg mirtazapine (REMERON) tablet 30 mg 06-30 02:00: 00 Yes 30mg 30 mg, Oral, QHS, First dose on Sun06/29/24 at 2100, Until Discontinu ed, Routine [facility] mirtazapine 30 mg tablet 06-30 00:00: 00 07-31 04:59 :00 Yes [id number] 30mg Take 1 tablet by mouth at bedtime as needed for Insomnia for up to 30 days. [facility] NaCl 0.9% (NS) IV infusion 1,000 mL 06-29 19:30: 00 06-29 18:38 :38 No 1000mL at 500 mL/hr, IV Infusion, CONTINUOUS , Starting on Sun06/29/24 at 1430, Until Sun06/29/24 at 1338, Routine [facility] ARIPiprazol e (ABILIFY) tablet 10 mg ARIPiprazol e (ABILIFY) tablet 10 mg 06-29 14:00: 00 Yes 10mg 10 mg, Oral, DAILY, First dose on Sun06/29/24 at 0900, Until Discontinu ed, Routine [facility] sennosides- docusate sodium (SENOKOT-S) 8.6-50 mg per tablet 1 tablet sennosides- docusate sodium (SENOKOT-S) 8.6-50 mg per tablet 1 tablet 06-29 14:00: 00 07-01 00:54 :52 Yes 1{tbl} 1 tablet, Oral, DAILY, First dose on Sun06/29/24 at 0900, Until Discontinu ed, Routine [facility] perflutren protein-A microsphr (OPTISON) injection 3 mL 06-29 13:30: 00 06-29 13:30 :00 No [id number] 3mL 3 mL, IV Push, ONCE, 1 dose, On Sun06/29/24 at 0830, Routine [facility] heparin (porcine) injection 5,000 Units [id number] 2578-0 5-11 13:00: 00 07-01 00:54 :52 Yes 5000U 5,000 Units, Subcutaneo us, Q12H, First dose on Sun06/29/24 at 0800, Until Discontinu ed, Routine [facility] NaCl 0.9% (NS) bolus infusion 1,000 mL 06-29 12:15: 00 06-29 16:00 :00 No 1000mL at 999 mL/hr, 1,000 mL, IV Piggyback, ONCE, 1 dose, On Sun06/29/24 at 0715, STAT [facility] amoxicillin -pot clavulanate (AUGMENTIN) 875-125 mg per tablet 1 tablet amoxicillin -pot clavulanate (AUGMENTIN) 875-125 mg per tablet 1 tablet 06-29 08:00: 00 07-04 07:59 :00 Yes 1{tbl} 1 tablet, Oral, Q12H ABX, 10 doses, First dose on Sun06/29/24 at 0300, Last dose on Maye 07/03/24 at 1500, Routine, Reason for Anti-Infec tive: Documented Infection, Documented Infection Site: Skin / Soft Tissue, Duration of therapy: Other (days), Other (days): 5 [facility] hydrOXYzine (ATARAX) tablet 50 mg 06-29 07:36: 23 07-01 00:54 :52 No 50mg 50 mg, Oral, Q6HPRN, Starting on Sun06/29/24 at 0236, Until Sun06/30/24 at 1954, Routine, Anxiety [facility] acetaminoph en (TYLENOL) tablet 650 mg acetaminoph en (TYLENOL) tablet 650 mg 06-29 06:44: 37 06-30 14:17 :11 Yes 650mg 650 mg, Oral, Q6HPRN, Starting on Sun06/29/24 at 0144, Until Sun06/30/24 at 0917, Routine, Pain (scale 1-3) [facility] NaCl 0.9% (NS) bolus infusion 500 mL 06-28 22:45: 00 06-29 00:00 :00 No 500mL at 999 mL/hr, 500 mL, IV Infusion, ONCE, 1 dose, On 06/28/24 at 1745, STAT [facility] diphenhydrA MINE (BENADRYL) injection 50 mg 06-28 17:30: 00 06-28 17:18 :00 No 50mg 50 mg, Intramuscu lar, ONCE, 1 dose, On 06/28/24 at 1230, STAT [facility] LORazepam (ATIVAN) injection 2 mg 06-28 17:15: 00 06-28 17:18 :00 No 2mg 2 mg, Intramuscu lar, ONCE, 1 dose, On 06/28/24 at 1215, STAT [facility] haloperidol lactate (HALDOL) injection 5 mg 06-28 17:15: 00 06-28 17:18 :00 No 5mg 5 mg, Intramuscu lar, ONCE, 1 dose, On 06/28/24 at 1215, STAT, Chemical Restraint: No, Reason for Use: Management of Acute Agitation/ Delirium (NOT CHEMICAL RESTRAINT) , Indication for use of Injectable Psychotrop ics: Undifferen tiated Agitation/ Delirium [facility] naproxen 500 mg tablet 06-26 00:00: 00 06-29 00:00 :00 No [id number] 500mg Take 1 tablet by mouth in the morning and 1 tablet in the evening. Take with meals. Do all this for 10 days. [facility] ketorolac (TORADOL) injection 30 mg 08-29 09:15: 00 08-29 08:40 :00 No 30mg 30 mg, Slow IV Push, ONCE NOW, 1 dose, On Sun08/30/23 at 0415, JEAN PIERRE [facility] ceFAZolin (ANCEF) 1,000 mg in NaCl 0.9% (NS) 100 mL MINI-BAG 08-29 09:00: 00 08-29 09:04 :00 No 1000mg 1,000 mg, Intravenou s, ONCE, 1 dose, On Sun08/30/23 at 0400, Administer over 30 Minutes, 100 mL, Reason for Anti-Infec tive: Documented Infection, Documented Infection Site: Skin / Soft Tissue, Duration of Therapy: Once (ED) [facility] dexamethaso ne sod phos PF injection 10 mg 08-29 08:30: 00 08-29 08:39 :00 No 10mg 10 mg, Slow IV Push, ONCE, 1 dose, On Maye 08/30/23 at 0330, 1 mL [facility] doxycycline hyclate (Vibramycin ) capsule 200 mg 08-29 08:30: 00 08-29 08:40 :00 No 200mg 200 mg, Oral, ONCE, 1 dose, On Maye 08/30/23 at 0330, JEAN PIERRE, Reason for Anti-Infec tive: Documented Infection, Documented Infection Site: Skin / Soft Tissue, Duration of Therapy: Once (ED) [facility] doxycycline hyclate 100 mg capsule 08-29 00:00: 00 06-29 00:00 :00 No [id number] 100mg Take 1 capsule by mouth in the morning and 1 capsule in the evening. [facility] mupirocin 2 % ointment 08-29 00:00: 00 06-29 00:00 :00 No [id number] Apply to area(s) 3 (three) times daily. [facility] chlorhexidi ne 4 % external liquid 08-29 00:00: 00 06-29 00:00 :00 No [id number] Apply to area(s) once daily as needed for Wound care. [facility] ca acetate-alu m sulfate (DOMEBORO) topical packet 08-29 00:00: 00 06-29 00:00 :00 No [id number] 1{packe t} Apply 1 Packet to area(s) in the morning and 1 Packet at noon and 1 Packet in the evening. Apply to all the lesions on your skin [facility] Albuterol HFA 108 (90 Base) MCG/ACT IN AERS 04-25 00:00: 00 Yes [id number] 2{puff} Q.25D Inhale 2 puffs into the lungs every 6 hours as needed for wheezing. Junie casillas Diclofenac Sodium 75 MG oral Tablet Delayed Response 04-25 00:00: 00 Yes [id number] 75mg Take 1 tablet (75 mg total) by mouth 2 times daily. Junie casillas Pseudoeph-B romphen-DM 30-2-10 MG/5ML oral Syrup 04-25 00:00: 00 Yes [id number] 10mL Q.25D Take 10 mL by mouth 4 times daily as needed. Junie casillas Guaifenesin (Mucinex) 600 MG oral Tablet 12 Hour Sustained Release 04-25 00:00: 00 Yes [id number] 1200mg Take 2 tablets (1,200 mg total) by mouth 2 times daily. Junie casillas ibuprofen 600 mg tablet 2022-02 0 00:00: 00 06-29 00:00 :00 No [id number] 600mg Take 1 tablet by mouth every 6 (six) hours as needed for Pain (scale 4-6) for up to 30 doses. [facility] maalox:diph enhydrAMINE :lidocaine 2 % viscous 1:1:1 ([facility]) oral suspension 15 mL 2021-02 22:15: 00 12-23 22:14 :00 No 15mL 15 mL, Oral, ONCE, 1 dose, On Sun12/23/21 at 1715, Routine [facility] NaCl 0.9% (NS) IV infusion 1,000 mL 2021-02 06:15: 00 12-21 06:48 :00 No 1000mL at 999 mL/hr, Intravenou s, ONCE, 1 dose, On Sun12/21/21 at 0115, JEAN PIERRE [facility] LORazepam (ATIVAN) injection 1 mg 2021-02 05:15: 00 12-21 05:24 :00 No 1mg 1 mg, Slow IV Push, ONCE, 1 dose, On Sun12/21/21 at 0015, STAT [facility] ibuprofen 800 mg tablet 04 00:00: 00 Yes [id number] 800mg Take 1 tablet by mouth every 6 (six) hours as needed for Pain (scale 4-6). [facility] albuterol 90 mcg/actuati on inhaler 06-21 00:00: 00 06-29 00:00 :00 No [id number] 2{puff} Inhale 2 Puffs every 4 (four) hours as needed for Wheezing or Shortness of Breath. [facility] azithromyci n (ZITHROMAX Z-TRENT) 250 mg tablet 06-21 00:00: 00 12-21 00:00 :00 No [id number] 250mg Take 1 tablet by mouth SEE-INSTRU CTIONS. Take 500 mg day 1, then 250 mg days 2 to 5. [facility] predniSONE 20 mg tablet 06-21 00:00: 00 12-21 00:00 :00 No [id number] 40mg Take 2 tablets by mouth daily. [facility] ibuprofen (IBU) tablet 600 mg 03-18 21:30: 00 03-19 09:29 :00 No 600mg 600 mg, Oral, ONCE, 1 dose, [facility] 03/18/20 at 1530, JEAN PIERRE [facility] ibuprofen 600 mg tablet 03-18 00:00: 00 12-21 00:00 :00 No [id number] 600mg Take 1 tablet by mouth every 6 (six) hours as needed for Pain (scale 4-6). [facility] No known medications No Un ajit [facility] No known medications No Un ajit [facility] No known medications No Un ajit [facility] Immunizations Ordered Immunization Name Filled Immunization Name Date Status Comments Source TD Pres-Free 2024-06-29 00:00:00 Completed [facility] Covid-19 Vaccine Moderna (Spikevax), Mrna-lnp, Carl[place] Protein, Pf Unknown Completed Junie Augustin External Covid-19 Vaccine (Kelly) Unknown Completed Junie Augustin External Vital Signs Vital Name Observation Time Observation Value Comments S pete Systolic blood pressure 2024-07-01 00:23:00 110 mm[Hg] [facility] Diastolic blood pressure 2024-07-01 00:23:00 61 mm[Hg] [facility] Heart rate 2024-07-01 00:23:00 66 /min [facility] Body temperature 2024-07-01 00:23:00 36.28 Charisma [facility] Respiratory rate 2024-07-01 00:23:00 18 /min [facility] Oxygen saturation in Arterial blood by Pulse oximetry 2024-07-01 00:23:00 97 /min [facility] Body height 2024-06-28 17:30:00 167.6 cm [facility] Body weight 2024-06-28 17:30:00 63.504 kg [facility] BMI 2024-06-28 17:30:00 22.60 kg/m2 [facility] Systolic blood pressure 2024-06-27 03:00:00 127 mm[Hg] [facility] Diastolic blood pressure 2024-06-27 03:00:00 80 mm[Hg] [facility] Heart rate 2024-06-27 03:00:00 117 /min [facility] Body temperature 2024-06-27 03:00:00 36.61 Charisma [facility] Respiratory rate 2024-06-27 03:00:00 18 /min [facility] Oxygen saturation in Arterial blood by Pulse oximetry 2024-06-27 03:00:00 100 /min [facility] Body height 2024-06-27 00:10:00 167.6 cm [facility] Body weight 2024-06-27 00:10:00 58.968 kg [facility] BMI 2024-06-27 00:10:00 20.98 kg/m2 [facility] Systolic blood pressure 2023-08-30 08:05:00 145 mm[Hg] [facility] Diastolic blood pressure 2023-08-30 08:05:00 87 mm[Hg] [facility] Heart rate 2023-08-30 08:05:00 88 /min [facility] Body temperature 2023-08-30 08:05:00 36.56 Charisma [facility] Respiratory rate 2023-08-30 08:05:00 20 /min [facility] Body height 2023-08-30 08:05:00 167.6 cm [facility] Body weight 2023-08-30 08:05:00 52.164 kg [facility] BMI 2023-08-30 08:05:00 18.56 kg/m2 [facility] Oxygen saturation in Arterial blood by Pulse oximetry 2023-08-30 08:05:00 99 /min [facility] Systolic blood pressure 2022-12-02 12:35:00 116 mm[Hg] [facility] Diastolic blood pressure 2022-12-02 12:35:00 95 mm[Hg] [facility] Heart rate 2022-12-02 12:35:00 100 /min [facility] Body temperature 2022-12-02 12:35:00 37.11 Charisma [facility] Respiratory rate 2022-12-02 12:35:00 16 /min [facility] Body height 2022-12-02 12:35:00 165.1 cm [facility] Body weight 2022-12-02 12:35:00 61.236 kg [facility] BMI 2022-12-02 12:35:00 22.47 kg/m2 [facility] Oxygen saturation in Arterial blood by Pulse oximetry 2022-12-02 12:35:00 100 /min [facility] Heart rate 2021-12-23 22:15:00 95 /min [facility] Oxygen saturation in Arterial blood by Pulse oximetry 2021-12-23 22:15:00 98 /min [facility] Systolic blood pressure 2021-12-23 19:30:00 135 mm[Hg] [facility] Diastolic blood pressure 2021-12-23 19:30:00 99 mm[Hg] [facility] Body temperature 2021-12-23 19:30:00 36.61 Charisma [facility] Respiratory rate 2021-12-23 19:30:00 20 /min [facility] Body weight 2021-12-23 19:30:00 65.772 kg [facility] BMI 2021-12-23 19:30:00 23.40 kg/m2 [facility] Heart rate 2021-12-21 07:45:00 108 /min [facility] Respiratory rate 2021-12-21 07:45:00 18 /min [facility] Oxygen saturation in Arterial blood by Pulse oximetry 2021-12-21 07:45:00 100 /min [facility] Systolic blood pressure 2021-12-21 06:01:00 136 mm[Hg] [facility] Diastolic blood pressure 2021-12-21 06:01:00 86 mm[Hg] [facility] Body temperature 2021-12-21 04:48:00 36.89 Charisma [facility] Body height 2021-12-21 04:48:00 167.6 cm [facility] Body weight 2021-12-21 04:48:00 65.772 kg [facility] BMI 2021-12-21 04:48:00 23.40 kg/m2 [facility] Heart rate 2021-10-24 02:37:00 122 /min [facility] Body temperature 2021-10-24 02:37:00 37.56 Charisma [facility] Respiratory rate 2021-10-24 02:37:00 18 /min [facility] Body height 2021-10-24 02:37:00 167.6 cm [facility] Body weight 2021-10-24 02:37:00 68.04 kg [facility] BMI 2021-10-24 02:37:00 24.21 kg/m2 [facility] Oxygen saturation in Arterial blood by Pulse oximetry 2021-10-24 02:37:00 98 /min [facility] Systolic blood pressure 2020-06-21 16:52:00 112 mm[Hg] [facility] Diastolic blood pressure 2020-06-21 16:52:00 88 mm[Hg] [facility] Heart rate 2020-06-21 16:52:00 79 /min [facility] Body temperature 2020-06-21 16:52:00 36.5 Charisma [facility] Respiratory rate 2020-06-21 16:52:00 18 /min [facility] Body weight 2020-06-21 16:52:00 58.968 kg [facility] BMI 2020-06-21 16:52:00 22.31 kg/m2 [facility] Oxygen saturation in Arterial blood by Pulse oximetry 2020-06-21 16:52:00 99 /min [facility] Systolic blood pressure 2020-04-01 16:34:00 120 mm[Hg] [facility] Diastolic blood pressure 2020-04-01 16:34:00 76 mm[Hg] [facility] Heart rate 2020-04-01 16:34:00 84 /min [facility] Body temperature 2020-04-01 16:34:00 36.94 Charisma [facility] Respiratory rate 2020-04-01 16:34:00 18 /min [facility] Body weight 2020-04-01 16:34:00 58.968 kg [facility] BMI 2020-04-01 16:34:00 22.31 kg/m2 [facility] Oxygen saturation in Arterial blood by Pulse oximetry 2020-04-01 16:34:00 100 /min [facility] Heart rate 2020-03-18 19:45:00 81 /min [facility] Respiratory rate 2020-03-18 19:45:00 24 /min [facility] Oxygen saturation in Arterial blood by Pulse oximetry 2020-03-18 19:45:00 97 /min [facility] Body temperature 2020-03-18 19:10:00 36.78 Charisma [facility] Body height 2020-03-18 19:10:00 162.6 cm [facility] Body weight 2020-03-18 19:10:00 58.968 kg [facility] BMI 2020-03-18 19:10:00 22.31 kg/m2 [facility] Systolic blood pressure 2020-03-18 19:08:00 130 mm[Hg] [facility] Diastolic blood pressure 2020-03-18 19:08:00 98 mm[Hg] [facility] Systolic blood pressure 2019-10-29 11:05:00 125 mm[Hg] [facility] Diastolic blood pressure 2019-10-29 11:05:00 65 mm[Hg] [facility] Heart rate 2019-10-29 11:05:00 114 /min [facility] Body temperature 2019-10-29 11:05:00 36.61 Charisma [facility] Respiratory rate 2019-10-29 11:05:00 20 /min [facility] Body weight 2019-10-29 11:05:00 63.504 kg [facility] BMI 2019-10-29 11:05:00 21.93 kg/m2 [facility] Oxygen saturation in Arterial blood by Pulse oximetry 2019-10-29 11:05:00 99 /min [facility] Procedures Procedure Date / Time Performed Performing Clinician Source CREATINE KINASE 2024-06-30 21:06:00 Tuyet Mansfield [facility] CREATINE KINASE 2024-06-30 09:21:00 Rachel Peoples [facility] MAGNESIUM 2024-06-30 09:21:00 Tuyet Mansfield [facility] BASIC METABOLIC PANEL (NA, K, CL, CO2, GLUCOSE, BUN, CREATININE, CA) 2024-06-30 09:21:00 Tuyet Mansfield [facility] CBC WITH DIFF 2024-06-30 09:21:00 Tuyet Mansfield [facility] URINE DRUG (IMMUNOASSAY) - COMPREHENSIVE DRUG SCREEN 2024-06-30 09:19:00 Tuyet Mansfield [facility] EXTRA TUBE URINE CULTURE 2024-06-30 09:19[facility] W/ CONTRAST 2024-06-29 13:18:05 Durga Sevilla [facility] [facility] CREATINE KINASE 2024-06-29 07:17:00 Tad Sevilla [facility] MAGNESIUM 2024-06-29 07:17:00 Tad Sevilla [facility] FERRITIN SERUM 2024-06-29 07:17:00 Tad Sevilla [facility] BASIC METABOLIC PANEL (NA, K, CL, CO2, GLUCOSE, BUN, CREATININE, CA) 2024-06-29 07:17:00 Durga Sevilla [facility] LIPID PANEL (92337)(TOTAL CHOLESTEROL, TRIGLYCERIDES, HDL) 2024-06-29 07:17:00 Durga Sevilla [facility] IRON PANEL 2024-06-29 07:17:00 Tad Sevilla [facility] SERUM DRUG (IMMUNOASSAY) - COMPREHENSIVE DRUG SCREEN 2024-06-29 07:17:00 Durga Sevilla [facility] CBC WITH DIFF 2024-06-29 07:17:00 Tad Sevilla [facility] GLYCOSYLATED HEMOGLOBIN (A1C) 2024-06-29 07:17:00 Durga Sevilla [facility] PROTHROMBIN TIME / INR 2024-06-29 07:17:00 Durga Barnes [facility] ACTIVATED PARTIAL THRMPLAS PRIETO 2024-06-29 07:17:00 Durga Sevilla [facility] TROPONIN I 2024-06-29 04:24:00 Narendra Oneal [facility] CT HEAD WO CONTRAST 2024-06-28 23:36:29 Ivana Mcmillan [facility] EKG-12 LEAD 2024-06-28 23:22:57 Ivana Valero [facility] INFLUENZA A/B RSV COVID NAAT 2024-06-28 22:19:00 Ivana Valero [facility] XR CHEST 1 VW 2024-06-28 22:13:36 Ivana Valero [facility] TROPONIN I 2024-06-28 17:19:00 Ivana Valero [facility] COMP. METABOLIC PANEL (52191) 2024-06-28 17:19:00 Ivana Valero [facility] CBC WITH DIFF 2024-06-28 17:19:00 Chayajelly Ivana Mathew [facility] XR CHEST 1 VW 2024-06-27 01:29:28 Eliezer Mathias [facility] TROPONIN I 2024-06-27 01:08:00 Eliezer Mathias [facility] COMP. METABOLIC PANEL (40899) 2024-06-27 01:08:00 Stew [facility] CBC WITH DIFF 2024-06-27 01:08:00 Eliezer Mathias [facility] N-TERMINAL PRO-BNP 2024-06-27 01:08:00 Stew [facility] POCT GLUCOSE (AUTOMATED) 2024-06-27 00:06:00 Doc tor Unassigned, [place] [facility] XR CHEST 2 VW 2022-12-02 13:05:46 Devan Akins [facility] CONSENT/REFUSAL FOR DIAGNOSIS AND TREATMENT 2022-12-02 12:28:41 Doctor Unassigned, [place] [facility] URINE DRUG (IMMUNOASSAY) - COMPREHENSIVE DRUG SCREEN 2021-12-23 20:38:00 Patrice Arita [facility] URINALYSIS 2021-12-23 20:07:00 Patrice Arita [facility] LIPASE 2021-12-23 20:01:00 Patrice Arita [facility] TROPONIN I 2021-12-23 20:01:00 Patrice Arita [facility] COMP. METABOLIC PANEL (99295) 2021-12-23 20:01:00 Patrice Arita [facility] CBC WITH DIFF 2021-12-23 20:01:00 Patrice Arita [facility] XR CHEST 2 VW 2021-12-23 19:52:23 Patrice Arita [facility] CONSENT/REFUSAL FOR DIAGNOSIS AND TREATMENT 2021-12-23 19:09:39 Doctor Unassigned, [place] [facility] EKG-12 LEAD 2021-12-21 08:05:19 Kristi Stoll [facility] URINALYSIS 2021-12-21 06:48:00 Kristi Stoll [facility] URINE DRUG (IMMUNOASSAY) - COMPREHENSIVE DRUG SCREEN W/O REFLEX 2021-12-21 06:48:00 Kristi Stoll [facility] XR CHEST 2 VW 2021-12-21 05:20:08 Kristi Stoll [facility] LIPASE 2021-12-21 05:01:00 Kristi Stoll [facility] TROPONIN I 2021-12-21 05:01:00 Kristi Stoll [facility] COMP. METABOLIC PANEL (71651) 2021-12-21 05:01:00 Kristi Stoll [facility] CBC WITH DIFF 2021-12-21 05:01:00 Kristi Stoll [facility] NOTICE OF PRIVACY PRACTICES 2021-12-21 04:44:04 Doctor Unassigned, [place] [facility] CONSENT/REFUSAL FOR DIAGNOSIS AND TREATMENT 2021-12-21 04:42:41 Doctor Unassigned, [place] [facility] XR ELBOW <3 VW RIGHT 2021-10-24 03:19:39 Roxie Whitney i [facility] NOTICE OF PRIVACY PRACTICES 2021-10-24 02:35:27 Doctor Unassigned, [place] [facility] CONSENT/REFUSAL FOR DIAGNOSIS AND TREATMENT 2021-10-24 02:32:49 Doctor Unassigned, [place] [facility] XR CHEST 2 VW 2020-06-21 17:20:34 Eliezer Mathias [facility] COMP. METABOLIC PANEL (89611) 2020-04-01 18:20:00 Musa Parikh [facility] ETHANOL 2020-04-01 18:20:00 [facility] HEAD WO CONTRAST 2020-04-01 17:54:03 Aries Parikh [facility] SALICYLATE 2020-04-01 17:31:00 [facility] XR CHEST 1 VW 2020-03-18 20:02:51 Juarez Aparicio [facility] XR HAND <3 VW RIGHT 2020-03-18 20:02:51 Juarez Aparicio [facility] XR WRIST <3 VW RIGHT 2020-03-18 20:02:51 Juarez Aparicio [facility] CT HEAD WO CONTRAST 2020-03-18 19:52:26 Juarez Aparicio [facility] EMERGENCY DEPARTMENT DOCUMENTS 2019-12-05 05:01:00 Doctor Unassigned, [place] [facility] [place] RESUP NPTERF WND BODY 2.6-7.5 CM 2019-10-29 11:39:00 Raghavendra Whitney [facility] XR CHEST 2 VW 2017-07-20 17:38:00 Herlinad Montoya [facility] AMENDMENT REQUEST/DENIAL 2016-04-16 06:01:00 Doc tor Unassigned, [place] [facility] US ABDOMEN LIMITED 2011-08-09 16:36:00 Doctor Un assigned, [place] [facility] TDCJ CLINIC NOTE 2011-08-09 05:01:00 Doctor Unas signed, [place] [facility] Encounters Start Date/Time End Date/Time Encounter Type Admission Type Attending Clinicians Care Facility Care Department Encounter ID Source 2020-12-19 16:43:23 Emergency [facility] [id number] [facility] 2020-12-18 23:03:45 Emergency [facility] [id number] [facility] 2020-12-18 20:20:27 Emergency [facility] [id number] [facility] 2020-12-17 16:30:30 Emergency [facility] [id number] [facility] 2024-07-15 09:00:00 2024-07-15 09:00:00 Outpatient RANDI LOPEZ SHIWAN [facility] [id number] [facility] 2024-06-28 12:11:00 2024-06-30 19:46:00 [facility] [id number] [facility] 2024-06-28 12:11:00 2024-06-30 19:46:00 Hospital Encounter X TINY SULLIVAN [facility] [id number] [facility] 2024-06-26 19:03:00 2024-06-26 22:25:00 Emergency X MATHIAS ELIEZER ALVAREZ [facility] [id number] [facility] 2024-06-26 19:03:00 2024-06-26 22:25:00 Emergency Eliezer Mathias [facility] 1.2.840.114 350.1.13.10 4.2.7.2.686 [id number] [facility] 2024-06-13 00:00:00 2024-06-16 08:43:[address] [facility] 1.2.840.114 350.1.13.10 4.2.7.2.686 [id number] [facility] 2011-08-09 00:00:00 2024-04-05 07:53:10 Orders Only Doctor Unassigned, [place] Doctor [place]assigned, [place] [facility] 1.2.840.114 350.1.13.10 4.2.7.2.686 [id number] [facility] 2017-07-20 00:00:00 2024-04-05 07:52:57 Orders Only Doctor Unassigned, [place] Doctor Unassigned, [place] [facility] 1.2840.114 350.1.13.10 4.2.7.2.686 [id number] [facility] 2024-02-23 12:08:00 2024-02-23 12:24:00 Emergency DEVAN PORTILLO TIMOTHY [facility] [id number] [facility] 2024-02-23 12:08:00 2024-02-23 12:24:00 Emergency Devan Akins [facility] 1.2.840.114 350.1.13.10 4.2.7.2.686 [id number] [facility] 2023-11-20 10:00:00 2023-11-20 10:00:00 Outpatient RANDI LOPEZ SHIWAN [facility] [id number] [facility] 2023-09-12 00:00:00 2023-09-12 10:17:01 Letter (Out) Campaigns, Generic Provider [facility] 1.2.840.114 350.1.13.10 4.2.7.2.686 [id number] [facility] 2023-08-30 03:14:00 2023-08-30 04:06:00 Emergency X YUSEF COBB ANDRES [facility] [id number] [facility] 2023-08-30 03:14:00 2023-08-30 04:06:00 Emergency Yusef Cobb [facility] 1.2.840.114 350.1.13.10 4.2.7.2.686 [id number] [facility] 2023-08-30 02:20:50 2023-08-30 02:28:00 Emergency X [facility] [id number] [facility] 2023-07-11 00:00:00 2023-07-11 00:00:00 Outpatient GUCCI DONOHUE [id number] [facility] 2023-06-26 00:00:00 2023-06-26 00:00:00 Outpatient GUCCI DONOHUE [id number] [facility] 2023-05-28 00:00:00 2023-05-28 00:00:00 Outpatient GUCCI DONOHUE [id number] [facility] 2023-05-04 00:00:00 2023-05-04 00:00:00 Outpatient GUCCI DONOHUE [id number] [facility] 2023-04-27 00:00:00 2023-04-27 00:00:00 Outpatient GUCCI DONOHUE JUNIE REIS [id number] [facility] 2023-04-26 15:00:00 2023-04-26 15:00:00 Outpatient CHAIM GALLARDO JUNIE REIS [id number] [facility] 2023-04-26 14:00:00 2023-04-26 14:00:00 Outpatient CHARANJIT GUCCI REIS [id number] [facility] 2023-04-26 00:00:00 2023-04-26 00:00:00 Outpatient MD JUNIE DURBIN [id number] [facility] 2023-04-04 10:30:00 2023-04-04 10:30:00 Outpatient ITZKwaku GUCCI REIS [id number] [facility] 2023-03-30 14:00:00 2023-03-30 14:00:00 Outpatient LYNDA KOLB JUNIE REIS [id number] [facility] 2023-03-21 15:00:00 2023-03-21 15:00:00 Outpatient DURGA LYNDA JUNIE REIS [id number] [facility] 2022-12-02 07:36:00 2022-12-02 08:56:00 Emergency X AKINSDEVAN TIMOTHY [facility] [id number] [facility] 2022-12-02 07:36:00 2022-12-02 08:56:00 Emergency Mike Devan [facility] 1.2.840.114 350.1.13.10 4.2.7.2.686 [id number] [facility] 2021-12-23 14:15:00 2021-12-23 18:00:00 Emergency X PATRICE ARITA [facility] [id number] [facility] 2021-12-23 14:15:00 2021-12-23 18:00:00 Emergency Patrice Arita [facility] 1.2.840.114 350.1.13.10 4.2.7.2.686 [id number] [facility] 2021-12-20 23:58:00 2021-12-21 03:22:00 Emergency KRISTI DEGROOT [facility] [id number] [facility] 2021-12-20 23:58:00 2021-12-21 03:22:00 Emergency Kristi Stoll [facility] 1.2.840.114 350.1.13.10 4.2.7.2.686 [id number] [facility] 2021-10-23 21:43:00 2021-10-23 23:15:00 Emergency X RAGHAVENDRA WHITNEY [facility] [id number] [facility] 2021-10-23 21:43:00 2021-10-23 23:15:00 Emergency Devonte Keyurlive Hazel [facility] 1.2.840.114 350.1.13.10 4.2.7.2.686 [id number] [facility] 2020-06-21 11:55:00 2020-06-21 13:03:00 Emergency Stew Eliezer [facility] 1.2.840.114 350.1.13.10 4.2.7.2.686 [id number] [facility] 2020-04-01 10:47:00 2020-04-01 13:47:00 Emergency Musa Parikh [facility] 1.2.840.114 350.1.13.10 4.2.7.2.686 [id number] [facility] 2020-03-18 13:07:00 2020-03-18 14:37:00 Emergency Eliezer Mathias K Paige [facility] 1.2.840.114 350.1.13.10 4.2.7.2.686 [id number] [facility] 2019-12-05 00:00:00 2019-12-05 00:00:00 Orders Only Doctor Unassigned, [place] [facility] 1.2.840.114 350.1.13.10 4.2.7.2.686 [id number] [facility] 2019-10-29 05:57:00 2019-10-29 06:39:00 Emergency Raghavendra [facility] 1.2.840.114 350.1.13.10 4.2.7.2.686 [id number] [facility] 2016-04-16 00:00:00 2016-04-16 00:00:00 Orders Only Doctor Unassigned, [place] [facility] 1.2.840.114 350.1.13.10 4.2.7.2.686 [id number] [facility] Results Test Description Test Time Test Comments Results Result Co mments Source [facility] wo [id number] 13:17:21EXAM: CT HEAD WO CONTRAST HISTORY: Altered mental status.. TECHNIQUE: Axial CT of the head was performed and reconstructed at 5 mmintervals. Coronal and sagittal reformatted images were generated. COMPARISON: 04/01/2020 FINDINGS: The ventricles and cerebral sulci are normal in caliber and configuration.No midline shift or pathological extra-axial fluid collection is present.The basal cisterns are unremarkable. No acute intracranial hemorrhage or significant mass effect is visualized.No parenchymal attenuation abnormality is seen. The lowe- white matterdifferentiation is preserved. The mastoid air cells and paranasal air sinuses are clear. The calvariumand central skull base are unremarkable. [facility] FallsCreatine [id number] 11:16:22* Test Item Value Reference Range Interpretation Comme nts CK (test code = 0743123231) 40600 U/L 33-194 H Lab Interpretation (test cod e = 13623-8) Abnormal [facility] FallsFerritin [id number] 10:04:59* Test Item Value Reference Range Interpretation Comme nts FERRITIN (test code = 1906659924) 167 ng/mL 18.0-464.0 ROXANNA (test code = ROXANNA) Biotin has been reported to cause a negative bias, interpret results relative to patient's use of biotin. Lab Interpretation (test code = 07435-1) Normal [facility] FallsIron [id number] 09:37:58* Test Item Value Reference Range Interpretation Comme nts IRON (test code = 9865667744) 103 ug/dL 50-160 TIBC (test code = 6605659066) 270 ug/dL 250-410 % FE SAT (test code = 8395000463) 38 % 20-50 Lab Interpretation (test cod e = 00924-0) Normal [facility] Drug (Immunoassay) - Comprehensive Drug [id number] 09:07:59* Test Item Value Reference Range Interpretation Comme nts FIDELINA S (test code = 8548734637) Negative Negative BENZO S (test code = 2485873993) Negative Negative TRICYCLIC (test code = 9925173078) Negative Negative ROXANNA (test code = ROXANNA) Serum Drug Screen Cutoff Ranges Barbiturates ? ? - 3 mcg/mLBenzodiazepines ?- 50 ng/mLTCA ?- 300 ng/mL Test developed and characteristics determined by [facility]. The results are to be used only for medical (i.e., treatment) purposes. Unconfirmed screening results must not be used for non-medical purposes (e.g., employment testing, legal testing). Lab Interpretation (test code = 82040-1) Normal [facility] Falls[facility]esium2025-05-11 08:55:33* Test Item Value Reference Range Interpretation Comme nts MAGNESIUM (test code = 8333403491) 2.4 mg/dL 1.7-2.4 Lab Interpretation (test cod e = 38019-0) Normal [facility] Metabolic Panel (NA, K, CL, CO2, GLUCOSE, BUN, CREATININE, CA)2024-06-29 08:55:33* Test Item Value Reference Range Interpretation Comme nts NA (test code = 6328268480) 139 mmol/L 135-145 K (test code = 6936762293) 4.2 mmol/L 3.5-5.0 CL (test code = 8630167657) 107 mmol/L 98-108 CO2 TOTAL (test code = 2660550247) 26 mmol/L 23-31 AGAP (test code = 6188439246) 6 2-16 BUN (test code = 1512048891) 30 mg/dL 7-23 H GLUCOSE (test code = 1630067887) 137 mg/dL 70-110 H CREATININE (test code = 2160-0) 0.91 mg/dL 0.60-1.25 CALCIUM (test code = 1914033516) 9.3 mg/dL 8.6-10.6 eGFR (test code = 14886-0) 106.6 mL/min/1.73m2 CKD-EPI eGFR (2020). Assuming creatinine has been stable day-to-day for at least three months, the eGFR indicates Category G1 (>= 90 mL/min/1.73 m2) Lab Interpretation (test code = 68937-8) Abnormal [facility] FallsLipid Panel (59815)(Total Cholesterol, Triglycerides, HDL)2024-06-29 08:55:33* Test Item Value Reference Range Interpretation Comme nts CHOL (test code = 9516801762) 145 mg/dL 120-200 HDL (test code = 7397654296) 53 mg/dL >=40 HDLC RATIO (test code = 6796481442) 2.7 <=5.0 TRIG (test code = 8672074241) 67 mg/dL 30-170 LDL CHOL (test code = 42700-0) 79 mg/dL <=160 VLDL (test code = 5347997968) 13 mg/dL 5-60 Lab Interpretation (test cod e = 85021-1) Normal [facility] FallsGlycosylated Hemoglobin (A1C)2024-06-29 07:54:27* Test Item Value Reference Range Interpretation Comme nts HGB A1C (test code = 4548-4) 5 % 4.0-5.7 ROXANNA (test code = ROXANNA) Reference RangesNormal: <5.7%Prediabetes: 5.7 - 6.4%Diabetes: > 6.5% Lab Interpretation (test code = 13602-6) Normal [facility] FallsProthrombin Time / [id number] 07:47:50* Test Item Value Reference Range Interpretation Comme [facility] PROTIME PATIENT (test code = 5964-2) 12.4 10.1-12.6 INR (test code = 6301-6) 1.1 <=4.5 Normal INR <1.1; Warfarin Therapeutic range 2.0 to 3.0 or 2.5 to 3.5, depending upon the indications. Lab Interpretation (test code = 14208-6) Normal [facility] FallsActivated Partial Thrmplas [id number] 07:47:50* Test Item Value Reference Range Interpretation Comme [facility] APTT Patient (test code = 3173-2) 29 -36 Lab Interpretation (test cod e = 10506-9) Normal [facility] FallsCbc with [id number] 07:40:54* Test Item Value Reference Range Interpretation Comme [facility] WBC (test code = 6690-2) 12.3 4.20-10.70 H RBC (test code = 789-8) 3.99 4.26-5.52 L HGB (test code = 718-7) 12.3 g/dL 12.2-16.4 HCT (test code = 4544-3) 34.7 % 38.4-49.3 L MCV (test code = 787-2) 87 fL 81.7-95.6 MCH (test code = 785-6) 30.8 pg 26.1-32.7 MCHC (test code = 786-4) 35.4 g/dL 31.2-35.0 H RDW-SD (test code = 80777-9) 37.3 fL 38.5-51.6 L RDW-CV (test code = 788-0) 11.9 % 12.1-15.4 L PLT (test code = 777-3) 253 150-328 MPV (test code = 12201-2) 9.3 fL 9.8-13.0 L NRBC/100 WBC (test code = 9836868559) 0 0.0-10.0 NRBC x10^3 (test code = 6318494860) See_Comment [Automated messa ge] The system which generated this result transmitted reference range: 10*3/?L. The reference range was not used to interpret this result as normal/abnormal. GRAN MAT (NEUT) % (test code = 770-8) 70.9 % IMM GRAN % (test code = 6488493893) 0.5 % LYMPH % (test code = 736-9) 18.9 % MONO % (test code = 5905-5) 9.3 % EOS % (test code = 713-8) 0.2 % BASO % (test code = 706-2) 0.2 % GRAN MAT x10^3(ANC) (test code = 6570893132) 8.71 10*3/uL 1.99-6.95 H IMM GRAN x10^3 (test code = 2850237843) 0.06 10*3/uL 0.00-0.06 LYMPH x10^3 (test code = 731-0) 2.33 10*3/uL 1.09-3.23 MONO x10^3 (test code = 742-7) 1.15 10*3/uL 0.36-1.02 H EOS x10^3 (test code = 711-2) 0.06-0.53 L BASO x10^3 (test code = 704-7) 0.03 10*3/uL 0.01-0.09 Lab Interpretation (test code = 42296-7) Abnormal [facility] FallsXR Chest 1 [id number] 23:47:22EXAMINATION: XR CHEST 1 , 06/28/2024 6:45 PM ORDERING PHYSICIAN: IVANA VALERO HISTORY: confusion, concern for potential infection COMPARISON(S): Chest radiograph 06/26/2024. TECHNIQUE: Portable AP view FINDINGS:Support Devices: None. Lungs/Pleura: There is similar appearance of a large right apical bleb.Otherwise the lungs are clear. No pleural effusion or pneumothorax. Heart/Mediastinum: Heart and mediastinum are normal. Bones/Soft Tissues: Unremarkable. Upper Abdomen: Unremarkable.[facility] FallsCb with [id number] 18:36:13* Test Item Value Reference Range Interpretation Comme nts WBC (test code = 6690-2) 18.32 4.20-10.70 H RBC (test code = 789-8) 4.2 4.26-5.52 L HGB (test code = 718-7) 13 g/dL 12.2-16.4 HCT (test code = 4544-3) 37 % 38.4-49.3 L MCV (test code = 787-2) 88.1 fL 81.7-95.6 MCH (test code = 785-6) 31 pg 26.1-32.7 MCHC (test code = 786-4) 35.1 g/dL 31.2-35.0 H RDW-SD (test code = 61496-3) 37.7 fL 38.5-51.6 L RDW-CV (test code = 788-0) 11.7 % 12.1-15.4 L PLT (test code = 777-3) 359 150-328 H MPV (test code = 65578-1) 9.4 fL 9.8-13.0 L NRBC/100 WBC (test code = 5461585066) 0 0.0-10.0 NRBC x10^3 (test code = 8947736392) See_Comment [Automated message] The system which generated this result transmitted reference range: 10*3/?L. The reference range was not used to interpret this result as normal/abnormal. GRAN MAT (NEUT) % (test code = 770-8) 89.1 % IMM GRAN % (test code = 7154837619) 0.7 % LYMPH % (test code = 736-9) 5.2 % MONO % (test code = 5905-5) 4.7 % EOS % (test code = 713-8) 0.1 % BASO % (test code = 706-2) 0.2 % GRAN MAT x10^3(ANC) (test code = 0251526884) 16.33 10*3/uL 1.99-6.95 H IMM GRAN x10^3 (test code = 2258177942) 0.12 10*3/uL 0.00-0.06 H LYMPH x10^3 (test code = 731-0) 0.95 10*3/uL 1.09-3.23 L MONO x10^3 (test code = 742-7) 0.87 10*3/uL 0.36-1.02 EOS x10^3 (test code = 711-2) 0.06-0.53 L BASO x10^3 (test code = 704-7) 0.04 10*3/uL 0.01-0.09 ELLIPTO/OVAL (test code = 26594-1) 2+ See_Comment A [Automated message] The system which generated this result transmitted reference range: (none). The reference range was not used to interpret this result as normal/abnormal. SPHEROCYTES (test code = 802-9) 1+ A TOXIC CHANGES (test code = 803-7) Present A Lab Interpretation (test code = 00748-3) Abnormal [facility] FallsTroponin [id number] 18:09:45* Test Item Value Reference Range Interpretation Comme nts TROPONIN I (test code = 7943259955) 0.401 ng/mL <=0.034 H ROXANNA (test code = ROXANNA) Reference (Normal) [...] to patient's use of biotin. Lab Interpretation (test code = 00006-1) Abnormal [facility] FallsComp. Metabolic Panel (35754)2024-06-28 17:52:41* Test Item Value Reference Range Interpretation Comme nts NA (test code = 9332948462) 143 mmol/L 135-145 K (test code = 4319112625) 4 mmol/L 3.5-5.0 CL (test code = 2927568160) 106 mmol/L 98-108 CO2 TOTAL (test code = 2867776505) 21 mmol/L 23-31 L AGAP (test code = 2024337740) 16 2-16 BUN (test code = 5867282522) 33 mg/dL 7-23 H GLUCOSE (test code = 8588496864) 134 mg/dL 70-110 H CREATININE (test code = 2160-0) 1.3 mg/dL 0.60-1.25 H TOTAL BILI (test code = 2979040935) 1.1 mg/dL 0.1-1.1 CALCIUM (test code = 9690545157) 9.3 mg/dL 8.6-10.6 T PROTEIN (test code = 3385695574) 8.2 g/dL 6.3-8.2 ALBUMIN (test code = 6387781307) 5.2 g/dL 3.5-5.0 H ALK PHOS (test code = 6204237176) 65 U/L 34-122 ALTv (test code = 1742-6) 39 U/L 5-50 AST(SGOT) (test code = 5506676715) 120 U/L 13-40 H eGFR (test code = 11745-6) 69.5 mL/min/1.73m2 CKD-EPI eGFR (2020). Assuming creatinine has been stable day-to-day for at least three months, the eGFR indicates Category G2 (60 - 89 mL/min/1.73 m2) Lab Interpretation (test code = 85457-6) [facility]normal [facility] [facility] 1 [id number] 02:40:58XR CHEST 1 VW HISTORY: Chest pain Ordering physician: ELIEZER MATHIAS COMPARISON: Chest x-ray from 12/02/2022. RESULT:Few cardiac monitoring wires are noted overlying the chest. There are bullous changes at the upper lung zones, greater on the right. There is no focal consolidation. There is no pleural effusion. There is nopneumothorax. The cardiac silhouette is unremarkable in size and configurati on.[facility] GLUCOSE (AUTOMATED)2024-06-27 00:08:38 * Test Item Value Reference Range Interpretation Comme nts POCT GLU (test code = 6547923750) 94 mg/dL 70-110 Lab Interpretation (test cod e = 85249-4) Normal [facility] FallsTROPONIN [id number] 05:39:18* Test Item Value Reference Range Interpretation Comments TROPONIN I (test code = 1685170247) 0.006 ng/mL See_Comment [Automated message] The system which generated this result transmitted reference range: <=0.034. The reference range was not used to interpret this result as normal/abnormal. ROXANNA (test code = ROXANNA) Reference (Normal) [...] to patient's use of biotin. Lab Interpretation (test code = 51234-1) Normal [facility]. METABOLIC PANEL (04135)2021-12-21 05:28:02* Test Item Value Reference Range Interpretation Comme nts NA (test code = 6438295263) 137 mmol/L 135-145 K (test code = 9900637602) 4.3 mmol/L 3.5-5.0 CL (test code = 9618119063) 101 mmol/L 98-108 CO2 TOTAL (test code = 2639766142) 22 mmol/L 23-31 L AGAP (test code = 1677815011) 2-16 BUN (test code = 8418626985) 13 mg/dL 7-23 GLUCOSE (test code = 6310785230) 140 mg/dL 70-110 H CREATININE (test code = 4597145160) 1.18 mg/dL 0.60-1.25 TOTAL BILI (test code = 1516028406) 1.2 mg/dL 0.1-1.1 H CALCIUM (test code = 6856085716) 10.5 mg/dL 8.6-10.6 T PROTEIN (test code = 0675034232) 8.6 g/dL 6.3-8.2 H ALBUMIN (test code = 1473632816) 5.3 g/dL 3.5-5.0 H ALK PHOS (test code = 9390739494) 79 U/L 34-122 ALTv (test code = 1742-6) 22 U/L 5-50 AST(SGOT) (test code = 7868014720) 34 U/L 13-40 eGFR (test code = 8799703850) mL/min/1.73m2 ROXANNA (test code = ROXANNA) Association of [...] or abnormalities in imaging tests). Lab Interpretation (test code = 17217-1) Abnormal [facility] FallsLIPASE2022-11-02 05:27:17* Test Item Value Reference Range Interpretation Comme nts LIPASE (test code = 3379660016) 92 U/L 0-220 Lab Interpretation (test cod e = 98163-5) Normal [facility] FallsCB WITH [id number] 05:15:01* Test Item Value Reference Range Interpretation Comme nts WBC (test code = 6690-2) See_Comment [Automated Tunii] The system which generated this result transmitted reference range: 4.20 - 10.70 10*3/?L. The reference range was not used to interpret this result as normal/abnormal. RBC (test code = 789-8) See_Comment [Automated Tunii] The system which generated this result transmitted reference range: 4.26 - 5.52 10*6/?L. The reference range was not used to interpret this result as normal/abnormal. HGB (test code = 718-7) 17.2 g/dL 12.2-16.4 H HCT (test code = 4544-3) 48.2 % 38.4-49.3 MCV (test code = 787-2) 88.9 fL 81.7-95.6 MCH (test code = 785-6) 31.7 pg 26.1-32.7 MCHC (test code = 786-4) 35.7 g/dL 31.2-35.0 H RDW-SD (test code = 58927-5) 38.5 fL 38.5-51.6 RDW-CV (test code = 788-0) 11.9 % 12.1-15.4 L PLT (test code = 777-3) See_Comment H [Automated messa ge] The system which generated this result transmitted reference range: 150 - 328 10*3/?L. The reference range was not used to interpret this result as normal/abnormal. MPV (test code = 75397-4) 9.5 fL 9.8-13.0 L NRBC/100 WBC (test code = 5451460306) See_Comment [Automated [employer] ssage] The system which generated this result transmitted reference range: 0.0 - 10.0 /100 WBCs. The reference range was not used to interpret this result as normal/abnormal. NRBC x10^3 (test code = 2774713869) See_Comment [Automated messa ge] The system which generated this result transmitted reference range: 10*3/?L. The reference range was not used to interpret this result as normal/abnormal. GRAN MAT (NEUT) % (test code = 770-8) 58.8 % IMM GRAN % (test code = 4155604915) 0.40 % LYMPH % (test code = 736-9) 29.2 % MONO % (test code = 5905-5) 10.1 % EOS % (test code = 713-8) 0.8 % BASO % (test code = 706-2) 0.7 % GRAN MAT x10^3(ANC) (test code = 1889130948) 5.84 10*3/uL 1.99-6.95 IMM GRAN x10^3 (test code = 5690231944) 0.04 10*3/uL 0.00-0.06 LYMPH x10^3 (test code = 731-0) 2.90 10*3/uL 1.09-3.23 MONO x10^3 (test code = 742-7) 1.00 10*3/uL 0.36-1.02 EOS x10^3 (test code = 711-2) 0.08 10*3/uL 0.06-0.53 BASO x10^3 (test code = 704-7) 0.07 10*3/uL 0.01-0.09 Lab Interpretation (test code = 09625-8) Abnormal [facility] 2 [id number] 17:28:22No acute cardiopulmonary abnormality. Emphysematous changes. Preliminary Report Dictated by Resident: Durga Ward MD., have reviewed this study and agree with theabove report.EXAM: XR CHEST 2 VW HISTORY: 39 years-old Male; chest pain left upper chest pain and shortnessof breath starting 2 hours ago. TECHNIQUE: Frontal and lateral views of the chest. COMPARISON: Chest rad iograph dated 03/18/2020, 07/20/2017 FINDINGS: The lungs are clear and hyperinflated. Bullous changes are redemonstratedin the right lung apex. Bibasilar apical thickening is noted. No focalconsolidation, pleural effusion, or pneumothorax is visualized. The cardiomediastinal silhouette is normal. No ac cruz osseous abnormality is present. [facility], Radiant Results [...] reviewed this study and agree with theabove report.[facility] FallsACETAMINOPHEN2021-02-11 18:50:00* Test Item Value Reference Range Interpretation Comme nts ACETAMINOP (test code = 4714093578) <10.0 10-30 L ROXANNA (test code = ROXANNA) Toxic: Greater arvin n 200 ug/mL @ 4 hour post ingestion or greater than 50 ug/mL @ 12 hour post ingestion Lab Interpretation (test code = 14951-1) Abnormal [facility] FallsSALICYLATE2021-02-11 18:50:00* Test Item Value Reference Range Interpretation Comme nts SALICYLATE (test code = 3913089916) <10 mg/L ROXANNA (test code = ROXANNA) Therapeutic Range: ? Analgesic and Antipyretic Use ? 20-100 mg/L ? ? Anti-Inflammatory Use ? 100-250 mg/L Toxic Range: ? Greater than 300 mg/L [facility] FallsETHANOL2021-02-11 18:29:00* Test Item Value Reference Range Interpretation Comme nts ALCOHOL (test code = 8711476711) 87 mg/dL ROXANNA (test code = ROXANNA) <10 [id number] Toxic>100 Depression of HARVEST MANAGER>400 Fatalities Reported [facility] FallsCOM. METABOLIC PANEL (84182)2020-04-01 18:28:00* Test Item Value Reference Range Interpretation Comme nts NA (test code = 0488920878) 137 mmol/L 135-145 K (test code = 8498463177) 4.6 mmol/L 3.5-5 CL (test code = 4604083031) 102 mmol/L 98-108 CO2 TOTAL (test code = 2347082941) 24 mmol/L 23-31 AGAP (test code = 1469735158) 2-16 BUN (test code = 7396041581) 12 mg/dL 7-23 GLUCOSE (test code = 4435290300) 93 mg/dL 70-110 CREATININE (test code = 1217306542) 0.93 mg/dL 0.6-1.25 TOTAL BILI (test code = 4963536833) 0.8 mg/dL 0.1-1.1 CALCIUM (test code = 0499613083) 9.3 mg/dL 8.6-10.6 T PROTEIN (test code = 3808233357) 8.1 g/dL 6.3-8.2 ALBUMIN (test code = 8292599146) 4.9 g/dL 3.5-5 ALK PHOS (test code = 5609305477) 77 U/L 34-122 ALTv (test code = 1742-6) 20 U/L 5-50 AST(SGOT) (test code = 2539250017) 46 U/L 13-40 H eGFR Calculation (Non-) (test code = 3452449329) mL/min/1.73m2 eGFR Calculation () (test code = 5178598488) mL/min/1.73m2 ROXANNA (test code = ROXANNA) Association of [...] or abnormalities in imaging tests). Lab Interpretation (test code = 65984-8) Abnormal [facility] FallsCT HEAD WO [id number] 17:56:45No acute findings. HISTORY:Cerebral hemorrhage suspected TECHNIQUE: Noncontrast head CT was performed. COMPARISON:03/18/2020 FINDINGS: The ventricles and sulci are appropriate for patient's age. Thereis no midline shift. The basal cisterns are preserved. No largevascular territory infarction, intracranial hemorrhage or mass effect isseen. The extracranial tissues demonstrate no acute findings. [facility], Radiant Results Inft User - 04/01/2020 11:57 AM CSTHISTORY:Cerebral hemorrhage suspected TECHNIQUE: Noncontrast head CT was performed.COMPARISON:03/18/2020FINDINGS:The ventricles and sulci are appropriate for patient's age.There is no midline shift. The basal cisterns are preserved. No largevascular territory infarction, intracranial hemorrhage or mass effect isseen.The extracranial tissues demonstrate no acute findings.IMPRESSIONNo acute findings.[facility]XR HAND <3 VW [id number] 20:06:34HISTORY: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 mL/min/1.73m2 TROPONIN I - Abnormal TROPONIN I 0.401 (*) <=0.034 ng/mL URINALYSIS URINE DRUG (IMMUNOASSAY) - COMPREHENSIVE DRUG SCREEN FENTANYL (IMMUNOASSAY) INFLUENZA A/B RSV COVID NAAT EKG: If EKG completed, see Procedure Note. Orders and Treatments: Orders Placed This Encounter Procedures XR Chest 1 vw Cbc with Diff Comp. Metabolic Panel (81694) Urinalysis DRUG PANEL 2 URINE Troponin I Fentanyl (Immunoassay) Orders Placed This Encounter Medications DISCONTD: diphenhydrAMINE (BENADRYL) injection 50 mg haloperidol lactate (HALDOL) injection 5 mg LORazepam (ATIVAN) injection 2 mg diphenhydrAMINE (BENADRYL) injection 50 mg DISCONTD: haloperidol lactate (HALDOL) injection 5 mg NaCl 0.9% (NS) bolus infusion 500 mL First Provider Eval: ED Events Date/Time Event User Comments 06/28/24 1230 Medical Screening Begins IVANA VALERO MD -- 06/28/24 1230 First Provider Evaluation IVANA VALERO MD -- ED COURSE Diagnosis/Impression as of 06/28/24 1652 Agitation Procedures: EKG-12 Lead ROUTINE ONCE Date/Time: 06/28/2024 4:54 PM Performed by: Ivana Valero MD Authorized by: Ivana Valero MD ECG interpreted by ED Physician in the absence of a housing development specialist: yes Rate: ECG rate: 119 ECG rate assessment: tachycardic Rhythm: Rhythm: sinus rhythm Ectopy: Ectopy: none QRS: QRS axis: Normal QRS intervals: Normal QRS conduction: normal ST segments: ST segments: Normal T waves: T waves: normal MDM: Medical Decision Making Robby Prado is a 43 year-old male presenting with symptoms as above. Patient, as above, well known to [facility] with presentation as above when does not take psychiatric medicaitons. Patient required medications for agitation as was not cooperative and unable to get labs and give fluids etc. Patient's labs and imaging reviewed, notable for elevated troponin at 0.401. EKG showed sinus tachycardia. UDS still pending. CT head still pending. Care transferred to Dr. Badillo at 6 pm with anticipated admission. No beds at [facility] so anticipate that patient will have to be transferred to [facility] for medicine admission. Spoke with [facility] admitting hospitalist. Problems Addressed: Agitation: acute illness or injury Amount and/or Complexity of Data Reviewed Labs: ordered. Radiology: ordered. Risk Prescription drug management. Parenteral controlled substances. Flowsheet Documentation: Scoring Tools: No data recorded Disposition/Condition: ED Disposition None Discharge Medications: Patient's Medications START taking these medications No medications on file CONTINUE taking these medications which have NOT CHANGED ALBUTEROL 90 MCG/ACTUATION INHALER Inhale 2 Puffs every 4 (four) hours as needed for Wheezing or Shortness of Breath. CA ACETATE-ALUM SULFATE (DOMEBORO) TOPICAL PACKET Apply 1 Packet to area(s) in the morning and 1 Packet at noon and 1 Packet in the evening. Apply to all the lesions on your skin CHLORHEXIDINE 4 % EXTERNAL LIQUID Apply to area(s) once daily as needed for Wound care. DOXYCYCLINE HYCLATE 100 MG CAPSULE Take 1 capsule by mouth in the morning and 1 capsule in the evening. IBUPROFEN 600 MG TABLET Take 1 tablet by mouth every 6 (six) hours as needed for Pain (scale 4-6) for up to 30 doses. MUPIROCIN 2 % OINTMENT Apply to area(s) 3 (three) times daily. NAPROXEN 500 MG TABLET Take 1 tablet by mouth in the morning and 1 tablet in the evening. Take with meals. Do all this for 10 days. START taking Modified Medications as Prescribed No medications on file STOP taking these medications No medications on file Follow-up: Electronically signed by: Ivana Valero MD 06/28/24 182 [facility] 2024-06-26 22:23:50 Pt given printed and verbal discharge instructions regarding lung blebs Prescriptions provided: naproxen 500 mg tablet Pt verbalized understanding of instructions, pt awake alert oriented, resp reg unlabored, skin w/d, color appropriate for race, moves all ext well,pt encouraged to follow up with pcp Advised to seek medical attention for new/prolonged/worsening of symptoms PIV d'cd, dressing to site, catheter in tact. Awake, alert oriented, resp reg unlabored, skin w/d, pt leaving amb with steady gait, in no apparent distress [facility] 2024-06-26 19:03:35 Pt brought in by [facility] from [facility] (Not in custody) C/o chest pain/ shoulder pain on the right side States he has a cyst on his right lung that is leaking into his lung and needs emergency surgery Pt is talking rapidly, jumping from subject to subject, jumping around a lot. States his left knee is probably broken (has been for several years) needs an xray because he can feel where it is broken Also states he needs a diabetes test because he "needs type 2 insulin" No hx of diabetes BG 94 in triage T Jamila Hughes RN [facility] 2024-06-16 08:40:21 Pt has been scheduled, thank you. Candie Hurtado [facility] 2024-06-13 16:42:21 Summer with [facility] calling to schedule patient appointment with Dr. Lane to be seen for cyst on the lung and Emphysema. Please advise Summer with [facility] T [facility] 2024-02-23 12:05:55 Pt arrived via stretcher with [facility]. Pt pulled IV out in bathroom. Pt refusing to be triaged. Saying he is mentally ill and and need an schedule 8 from a doctor. Pt said he wanted to leave. [place] police showed pt way to ER lobby. Pt ambulated with backpack and jacket. No signs of distress. [facility] 2023-08-30 04:05:00 Pt given printed and verbal discharge instructions regarding infected bug bite, encouraged keeping skin clean and dry, Prescriptions provided Discussed ibuprofen and to take with food to avoid GI distress, alternate with Tylenol to help with pain and/or fever Discussed antibiotic therapy and to take until all completed unless adverse reaction occurs - if occurs, discontinue medication and follow up with pcp/seek medical attention Pt verbalized understanding of instructions,pt encouraged to follow up with pcp Advised to seek medical attention for new/prolonged/worsening of symptoms, No adverse reaction to meds given in ER noted upon discharge PIV d'cd, dressing to site, catheter in tact. Awake, alert oriented, resp reg unlabored, skin w/d, pt leaving in no apparent distress, [facility] 2023-08-30 03:15:40 Pt given sandwhich, socks, and warm blankets per request. He is homeless. [facility] 2023-08-30 03:03:12 CC: Pt reports lesions to ankles and arms for weeks that he thinks was an allergic reaction to fleas. He called 911 from half-way tonight and has pressured speech concerning somebody stealing his dog, being wrongfully terminated, and evicted from his house. PMHx: ADHD, reports a "baseball size whole in his lung" Awake, alert, oriented, resp reg unlabored, skin warm, color appropriate for race, moves all ext without difficulty, amb with steady gait, wrapped in a blanket [facility] Lizeth Schroeder RN [facility] 2023-08-30 02:37:21 Pt called from lobby, no answer. Pt not in lobby. Will attempt again. Megan Gupta RN [facility] 2023-08-30 02:37:00 [facility] Emergency Department Note Patient Name: Robby Prado Date of : 1980 42 year old male Treatment Room: [place] [address] Primary Care Physician: PATIENT DOES NOT HAVE A PCP Patient Escorted by: Self [9] Mode of Arrival: EMS - [facility] ([place] [43] EMS Treatment Prior to ED Arrival: [facility] PARTER treatment: [facility];Saline lock Travel and Exposure Screening: Symptoms Does patient have any of these symptoms?: (not recorded) Exposure Screening Has patient had contact with someone with a communicable disease in the last month?: (not recorded) Diseases exposed to:: (not recorded) Is Patient ?: (not recorded) Exposure Date: (not recorded) Chief Complaint: Chief Complaint Patient presents with Cellulitis History of Present Illness: History provided by: Patient technical support representative used: No Animal Bite Contact animal: Insect Animal bite location: Multiple areas of his body. Time since incident: 2 weeks Pain details: Quality: Aching, itching and burning Severity: Mild Timing: Constant Progression: Worsening Incident location: Unable to specify Tetanus status: Unknown Relieved by: None tried Worsened by: Heat Ineffective treatments: None tried Associated symptoms: rash Associated symptoms: no fever and no numbness Associated symptoms comment: None Past Medical History/Immunizations: Past Medical History: Diagnosis Date ADHD (attention deficit hyperactivity disorder) Pneumothorax Tetanus received in last 5 years: Yes Allergies: Allergies Allergen Reactions Sulfa (Sulfonamide Antibiotics) Anaphylaxis Past Social History: Substance & Sexual Activity No substance use or sexual activity history on file. Past Surgical History: History reviewed. No pertinent surgical history. Review of Systems: Review of Systems Constitutional: Negative for activity change, appetite change, chills, diaphoresis, fatigue and fever. HENT: Negative for congestion, ear discharge, ear pain, rhinorrhea, sore throat and trouble swallowing. Eyes: Negative for photophobia, pain, discharge and redness. Respiratory: Negative for cough, chest tightness, shortness of breath and wheezing. Cardiovascular: Negative for chest pain, palpitations and leg swelling. Gastrointestinal: Negative for abdominal distention, abdominal pain, blood in stool, constipation, nausea and vomiting. Genitourinary: Negative for dysuria, urgency, polyuria, frequency, hematuria and flank pain. Musculoskeletal: Negative for arthralgias, joint swelling, myalgias and neck stiffness. Skin: Positive for rash and wound. Negative for color change. Neurological: Negative for dizziness, seizures, syncope, facial asymmetry, weakness, light-headedness, numbness and headaches. Psychiatric/Behavioral: Negative for agitation, confusion, hallucinations and self-injury. The patient is not nervous/anxious. Hematological: Negative for adenopathy and cold intolerance. Does not bruise/bleed easily. Endocrine: Negative for cold intolerance, polydipsia and polyuria. Physical Exam: ED Triage Vitals [08/30/23 0305] Weight 52.2 kg (115 lb) Actual or estimated Height 1.676 m (5' 6") BP (!) 145/87 Pulse 88 Resp 20 Temp 36.6 ?C (97.8 ?F) Temp source Oral SpO2 99 % Measured on Room air Physical Exam Vitals and nursing note reviewed. Constitutional: General: He is awake. He is not in acute distress. Appearance: He is well-developed and underweight. He is not diaphoretic. Comments: Dishevel in really poor hygenic conditions HENT: Head: Normocephalic and atraumatic. Right Ear: External ear normal. Left Ear: External ear normal. Nose: Nose normal. Mouth/Throat: Pharynx: No oropharyngeal exudate. Eyes: General: No scleral icterus. Right eye: No discharge. Left eye: No discharge. Conjunctiva/sclera: Conjunctivae normal. Pupils: Pupils are equal, round, and reactive to light. Neck: Thyroid: No thyromegaly. Vascular: No JVD. Trachea: No tracheal deviation. Cardiovascular: Rate and Rhythm: Normal rate and regular rhythm. Heart sounds: Normal heart sounds. No murmur heard. No friction rub. No gallop. Pulmonary: Effort: Pulmonary effort is normal. No respiratory distress. Breath sounds: Normal breath sounds. No stridor. No wheezing or rales. Chest: Chest wall: No tenderness. Abdominal: General: Bowel sounds are normal. There is no distension. Palpations: Abdomen is soft. There is no mass. Tenderness: There is no abdominal tenderness. There is no guarding or rebound. Musculoskeletal: General: No tenderness or deformity. Normal range of motion. Cervical back: Normal range of motion and neck supple. Lymphadenopathy: Cervical: No cervical adenopathy. Skin: General: Skin is warm and dry. Coloration: Skin is not pale. Findings: Rash present. No erythema. Rash is crusting and pustular. Comments: Patient has multiple ulcerated and infected insect bites at different stages of healing, some of them infected and with clear evidence of picking on his own skin, Lesions are scattered all over his body Neurological: Mental Status: He is alert and oriented to person, place, and time. Cranial Nerves: No cranial nerve deficit. Motor: No abnormal muscle tone. Coordination: Coordination normal. Deep Tendon Reflexes: Reflexes are normal and symmetric. Reflexes normal. Psychiatric: Behavior: Behavior normal. Behavior is cooperative. Thought Content: Thought content normal. Judgment: Judgment normal. Radiology: No orders to display Lab Results: Lab Results - No data to display EKG: If EKG completed, see Procedure Note. Orders and Treatments: No orders of the defined types were placed in this encounter. Orders Placed This Encounter Medications ketorolac (TORADOL) injection 30 mg doxycycline hyclate (Vibramycin) capsule 200 mg DISCONTD: ceFAZolin (ANCEF) injection 1,000 mg ceFAZolin (ANCEF) 1,000 mg in NaCl 0.9% (NS) 100 mL MINI-BAG dexamethasone sod phos PF injection 10 mg diphenhydrAMINE (BENADRYL) injection 25 mg doxycycline hyclate 100 mg capsule mupirocin 2 % ointment chlorhexidine 4 % external liquid ca acetate-alum sulfate (DOMEBORO) topical packet First Provider Eval: ED Events Date/Time Event User Comments 08/30/23321 Medical Screening Begins YUSEF COBB MD -- 08/30/23321 First Provider Evaluation YUSEF COBB MD -- ED COURSE Diagnosis/Impression as of 08/30/23332 Bug bite with infection, initial encounter - Multiple Locations Patient's condition improved with the treatment provided in the ED, will DC Home with adequate medications to treat hsi condition, and instructions to follow up with his PCP within a week. Procedures: Procedures MDM: Medical Decision Making Problems Addressed: Bug bite with infection, initial encounter: complicated acute illness or injury Risk OTC drugs. Prescription drug management. Flowsheet Documentation: Scoring Tools: No data recorded Disposition/Condition: ED Disposition ED Disposition Disch - Home Condition Stable Comment -- Discharge Medications: Patient's Medications START taking these medications CA ACETATE-ALUM SULFATE (DOMEBORO) TOPICAL PACKET Apply 1 Packet to area(s) in the morning and 1 Packet at noon and 1 Packet in the evening. Apply to all the lesions on your skin CHLORHEXIDINE 4 % EXTERNAL LIQUID Apply to area(s) once daily as needed for Wound care. DOXYCYCLINE HYCLATE 100 MG CAPSULE Take 1 capsule by mouth in the morning and 1 capsule in the evening. MUPIROCIN 2 % OINTMENT Apply to area(s) 3 (three) times daily. CONTINUE taking these medications which have NOT CHANGED ALBUTEROL 90 MCG/ACTUATION INHALER Inhale 2 Puffs every 4 (four) hours as needed for Wheezing or Shortness of Breath. IBUPROFEN 600 MG TABLET Take 1 tablet by mouth every 6 (six) hours as needed for Pain (scale 4-6) for up to 30 doses. START taking Modified Medications as Prescribed No medications on file STOP taking these medications No medications on file Follow-up: Electronically signed by: Yusef Cobb MD 08/30/[id number] T [facility]
[2024-09-27] MEDS ORDERED: NA CHLORIDE 0.9% 1,000 ML ONE (02:35)
[2024-09-27 02:49] LABS: Absolute Lymphocytes (CBC) 2.4 K/uL (0.7-4.9); Hematocrit 49.9 % (39.6-49.0); Hemoglobin 17.2 g/dL (13.6-17.9); MCH 31.0 pg (27.0-35.0); MCHC 34.4 g/dL (32.0-36.0); MCV 90.0 fL (80-100); MPV 7.7 fL (7.6-11.3); Nucleated RBC Absolute Count 0.0 (0-0); Nucleated Red Blood Cells % 0.1 % (0-0); RBC Red Blood Cell Count 5.55 M/uL (4.33-5.43); White Blood Count 5.60 thou/uL (4.3-10.9)
[2024-09-27 02:50] LABS: PT Prothrombin Time 11.7 SECONDS (10-13.0); Protime INR 1.04
[2024-09-27 02:51] LABS: PTT, Activated Partial Thromb 28.7 SECONDS (27.2-37.4)
[2024-09-27 03:02] LABS: ALT/SGPT 17 U/L (16-61); AST/SGOT 18 U/L (15-37); Albumin 4.2 g/dL (3.4-5.0); Albumin/Globulin Ratio 1.2 (1.1-1.8); Alkaline Phosphatase 85 U/L (45-117); Anion Gap 12.3 mEq/L (5.0-15.0); BUN Blood Urea Nitrogen 11 mg/dL (7-18); Bilirubin Indirect, Calculated 0.2 mg/dL (0.2-0.8); Globulin 3.6 g/dL (2.3-3.5); Glucose Level 128 mg/dL (74-106); Potassium 3.3 mEq/L (3.5-5.1)
--- NOTE | 2024-09-28 00:51 | EDPHYS ---
Physician Documentation [facility] Name: Robby Valdez Jr Age: 44 yrs Sex: Male : 1980 Arrival Date: 09/27/2024 Time: 00:50 Bed 18 Private MD: DESIRE Physician Bradly Oneal HPI: 09/27 01:03 This 44 yrs old Male presents to ER via Unassigned with complaints of sp4 agitation . 04:29 44-year-old male presents with acute agitation and intoxication. Patient is here with sp4 police escort. Police presents ROBINA. Patient apparently made suicidal and homicidal statements prior to arrival. . Historical: - Allergies: :57 Sulfa (Sulfonamide Antibiotics); ss12 - PMHx: :57 Cirrhosis; enlarged prostate; GERD; Schizophrenia; Bipolar disorder; Depressive ss12 disorder; - Immunization history:: Adult Immunizations unknown, Adult Immunizations unknown. - Infectious Disease History:: Denies. - Family history:: not pertinent. - Social history:: Smoking status: unknown. ROS: 04:30 Constitutional: Negative for fever, chills, and weight loss, positive for intoxication, sp4 positive agitation, positive for disorganized speech Eyes: Negative for injury, pain, redness, and discharge, 04:30 All other systems are negative, Exam: 04:30 Constitutional: Disheveled male thin appearing, acutely agitated and uncooperative. sp4 Head/Face: Normocephalic, atraumatic. Eyes: Pupils equal round and reactive to light, extra-ocular motions intact. Lids and lashes normal. Conjunctiva and sclera are not injected. Cornea within normal limits. Periorbital areas with no swelling, redness, or edema. ENT: Nares patent. No nasal discharge, no septal abnormalities noted. Tympanic membranes are normal and external auditory canals are clear. Oropharynx with no redness, swelling, or masses, exudates, or evidence of obstruction, uvula midline. Mucous membranes moist. Neck: Trachea midline, no thyromegaly or masses palpated, and no cervical lymphadenopathy. Supple, full range of motion without nuchal rigidity, or vertebral point tenderness. Chest/axilla: Normal chest wall appearance and motion. Nontender with no deformity. No lesions are appreciated. Cardiovascular: Regular rate and rhythm with a normal S1 and S2. No gallops, murmurs, or rubs. No pulse deficits. Respiratory: Lungs have equal breath sounds bilaterally, clear to auscultation and percussion. No rales, rhonchi or wheezes noted. No increased work of breathing, no retractions or nasal flaring. Abdomen/GI: Soft, with normal bowel sounds. No distension or tympany. No guarding or rebound. No evidence of tenderness throughout. Back: No spinal tenderness. No costovertebral tenderness. Skin: Warm, dry with normal turgor. Normal color with no rashes, no lesions, and no evidence of cellulitis. MS/ Extremity: Pulses equal, no cyanosis. Neurovascular intact. Full, normal range of motion. Neuro: Awake and alert, GCS 14, oriented to self and others, oriented to location, acutely agitated, examination is limited, grossly no lateralizing neurologic deficits 09/29 18:46 ECG was reviewed by the Attending Physician. rama Vital Signs: 09/27 00:58 Resp 24; ss12 02:18 Resp 16; Pulse Ox 90% on R/A; ss12 02:21 Pulse Ox 96% on 2 lpm NC; ss12 03:00 BP 106 / 64; Pulse 101; Resp 16 S; Pulse Ox 97% on 2 lpm NC; ss12 17:45 BP 110 / 84; Pulse 84; Resp 16; Pulse Ox 100% on R/A; Pain 0/10; em1 09/28 06:27 BP 116 / 79; Pulse 90; Resp 16 S; Temp 97.9(O); Pulse Ox 100% on R/A; ss12 11:20 BP 120 / 84; Pulse 67; Resp 16; Pulse Ox 100% on R/A; Pain 0/10; em1 09/29 06:42 BP 127 / 74; Pulse 60; Resp 16; Temp 98.5(O); Pulse Ox 98% on R/A; rk3 14:51 BP 125 / 66; Pulse 65; Resp 18; Temp 97.1; Pulse Ox 98% on R/A; Pain 0/10; iw 18:19 BP 164 / 78; Pulse 97; oh1 19:15 BP 125 / 74; Pulse 88; Resp 20; Temp 98.3; Pulse Ox 97% on R/A; Pain 0/10; tb4 17:45 Pain Scale: Adult em1 11:20 Pain Scale: Adult em1 14:51 Pain Scale: Adult iw 19:15 Pain Scale: Adult tb4 Viola Coma Score: 09/27 04:30 Eye Response: spontaneous(4). Motor Response: obeys commands(6). Verbal Response: sp4 confused(4). Total: 14. MDM: 02:06 Medical Screening Exam initiated sp4 04:36 Differential diagnosis: drug withdrawal. acute psychotic break, depression, psychosis sp4 secondary to non-compliance. Data reviewed: vital signs, nurses notes, old medical records, lab test result(s). Consideration of Admission/Observation Escalation of care including admission/observation considered. 07:23 Transition of care: After a detail discussion of the patient's case, care is sp4 transferred to [facility]. 07:23 ED course: Patient is awaiting on medications to her out to wake up.. sp4 19:00 Transition of care: Care assumed from [facility]. ms3 23:50 ED course: Patient reevaluated and is alert and oriented x 4, in no apparent distress, ms3 nontoxic-appearing, sleeping on a mattress on the floor. Patient has no complaints. Patient states he still feels suicidal as he is having financial difficulties.. 09/28 20:09 Transition of care: Care assumed from Diana Badillo MD. ms3 20:09 ED course: Patient reevaluated and is alert and oriented x 4, no apparent distress, ms3 nontoxic-appearing, resting on his mattress on the floor. Patient states he is not suicidal at this time; however, if released he will become suicidal wanting to jump into traffic. Patient explained he has tried to follow-up with [facility] without success. Will have [facility] assess patient.. 09/29 19:33 ED course: no homicidal , not homicidal, will follow up as out pt , or return to er if rama needs help. 09/27 01:04 Order name: Acetaminophen; Complete Time: 04:28 sp4 09/27 01:04 Order name: Basic Metabolic Panel; Complete Time: 04:28 sp4 09/27 01:04 Order name: CBC with Diff; Complete Time: 04:28 sp4 09/27 01:04 Order name: ETOH Level; Complete Time: 04:28 sp4 09/27 01:04 Order name: Hepatic Function; Complete Time: 04: sp4 09/27 01:04 Order name: PT-INR; Complete Time: 04: 4 09/27 01:04 Order name: Ptt, Activated; Complete Time: 04: sp4 09/27 01:04 Order name: Salicylate; Complete Time: 04: sp4 09/27 01:05 Order name: CK; Complete Time: 04: [facility] 09/28 18:15 Order name: UDS; Complete Time: 20:09 jl7 09/29 18:31 Order name: Troponin High Sensitivity; Complete Time: 19:29 [facility] 09/29 18:21 Order name: EKG; Complete Time: 18:21 [facility] 09/27 01:04 Order name: IV Saline Lock; Complete Time: 02:20 [facility] 09/27 01:04 Order name: Labs collected and sent; Complete Time: 02:20 [facility] 09/27 01:04 Order name: Suicide Precautions; Complete Time: 02:20 [facility] 09/27 01:04 Order name: Suicide Screening ([place]); Complete Time: 02:20 [facility] 09/29 18:21 Order name: EKG - Nurse/Tech; Complete Time: 18:27 [facility] EC:46 Rate is 89 beats/min. Rhythm is regular. QRS [place] is Normal. MN interval is normal. QRS rama interval is normal. QT interval is normal. No Q waves. T waves are Normal. No ST changes noted. Clinical impression: NSR w/ Non-specific ST/T Changes. Interpreted by me. Reviewed by me. Administered Medications: 09/27 01:13 Drug: Geodon IM 40 mg IM once Route: IM; Site: left gluteus; kd3 02:00 Follow up: Response: No adverse reaction; Anxiety decreased ss12 01:14 Drug: LORazepam IM 2 mg IM once Route: IM; Site: right gluteus; kd3 02:00 Follow up: Response: No adverse reaction; Anxiety decreased ss12 02:46 Drug: NS 0.9% IV 1000 ml IV at 1000 ml once; to be given as a bolus over 60 minutes kd3 Route: IV; Rate: 1000 ml; Site: right hand; 03:50 Follow up: IV Status: Completed infusion; IV Intake: 1000ml ss12 09/28 21:20 Drug: LORazepam PO 1 mg PO once Route: PO; ss12 23:00 Follow up: Response: No adverse reaction; Anxiety decreased ss12 09/29 17:27 Drug: LORazepam IM 1 mg IM once Route: IM; Site: left gluteus; iw 18:24 Drug: Nicoderm CQ Transdermal Patch 21 mg/24 hr 21 mg Transdermal once Route: iw Transdermal; Site: affected area; 20:03 Follow up: Response: No adverse reaction tb4 18:50 Drug: LORazepam IM 2 mg IM once Route: IM; Site: right ventrogluteal; iw 20:03 Follow up: Response: No adverse reaction; Anxiety decreased tb4 Disposition Summary: 09/29/24 19:31 Discharge Ordered Notes: Location: Home rama Problem: new(09/29/24 19:31) rama Symptoms: have improved(09/29/24 19:31) rama Condition: Stable(09/29/24 19:31) rmaa Diagnosis - Bipolar disorder, unspecified rama - Suicidal ideations - resolved(09/29/24 19:31) rama - Hypokalemia rama Followup: rama - With: Private Physician - When: 2 - 3 days - Reason: Recheck today's complaints, Continuance of care, Re-evaluation by your physician Followup: rama - With: Robby Jennings MD - When: 2 - 3 days - Reason: Recheck today's complaints, Re-evaluation by your physician Discharge Instructions: - Discharge Summary Sheet rama - Potassium Content of Foods rama - Helping Someone Who is Suicidal rama - Hypokalemia rama - Supporting Someone With Bipolar Disorder rama Forms: - Medication Reconciliation Form rama - Antibiotic Education rama - Prescription Opioid Use rama - Patient Portal Instructions rama - Leadership Thank You Letter rama Signatures: Dispatcher [employer] Bradly Anderson MD MD cha Williams, Irene, RN RN iw Mary Blas RN RN ll1 Anoop Collins DO DO ms3 Caron Jeffrey RN RN kd3 Madan Culp MD MD sp4 Cyndy Masters RN RN tb4 Mac Watts RN RN ss12 Corrections: (The following items were deleted from the chart) 09/27 01:05 01:05 ACETAMINOPHEN+C.LAB.BRZ ordered. EDMS EDMS 01:05 01:05 BASIC METABOLIC PANEL+C.LAB.BRZ ordered. EDMS EDMS 01:05 01:05 CBC+H.LAB.BRZ ordered. EDMS EDMS 01:05 01:05 ETHANOL+C.LAB.BRZ ordered. EDMS EDMS 01:05 01:05 HEPATIC FUNCTION+C.LAB.BRZ ordered. EDMS EDMS 01:05 01:05 PROTIME (+INR)+COAG.LAB.BRZ ordered. EDMS EDMS 01:05 01:05 PTT, ACTIVATED+COAG.LAB.BRZ ordered. EDMS EDMS 01:05 01:05 SALICYLATE+C.LAB.BRZ ordered. EDMS EDMS 19:44 01:05 URINE DRUG SCREEN+UC.LAB.BRZ ordered. EDMS EDMS 09/29 19:30 08 00:50 Dr ms3 [facility] 09/29 19:30 09/28 00:50 Psych Facility ms3 [facility] 09/29 19:30 09/28 00:50 Higher level of care ms3 [facility] 09/29 19:30 09/28 00:50 Stable ms3 [facility] 09/29 19:30 08 00:50 new ms3 [facility] 09/29 19:30 09/28 00:50 are unchanged ms3 [facility] 09/29 19:30 09/28 00:50 Suicidal ideations ms3 [facility]
--- NOTE | 2024-09-28 00:51 | ER ---
Nurse's Notes [facility] Name: Robby Valdez Jr Age: 44 yrs Sex: Male : 1980 Arrival Date: 09/27/2024 Time: 00:50 Bed 18 Private MD: Diagnosis: Bipolar disorder, unspecified;Suicidal ideations-resolved;Hypokalemia Presentation: 09/27 00:58 Chief complaint: [facility] motorcycle police officer stated that pt showed up to police [facility] office and stated that i will like to kill myself and at one point he stated that he would like to kill other people. Coronavirus screen: Client denies travel out of the [place] in the last 14 days. Ebola Screen: Patient negative for fever greater than or equal to 101.5 degrees Fahrenheit, and additional compatible Ebola Virus Disease symptoms Patient denies exposure to infectious person. Patient denies travel to an Ebola-affected area in the 21 days before illness onset. Initial Sepsis Screen: Does the patient meet any 2 criteria? No. Patient's initial sepsis screen is negative. Does the patient have a suspected source of infection? No. Patient's initial sepsis screen is negative. Risk Assessment: Do you want to hurt yourself or someone else? Patient reports no desire to harm self or others. 00:58 Method Of Arrival: Law Enforcement: Ruma SULLIVAN [facility] 00:58 Acuity: CROW 2 [facility] 09/29 20:02 Onset of symptoms is unknown. tb4 Triage Assessment: 09/27 00:58 General: Appears unkempt, Behavior is anxious, restless. Pain: Denies pain. EENT: No 12 deficits noted. No signs and/or symptoms were reported regarding the EENT system. Neuro: No deficits noted. Level of Consciousness is awake, alert, obeys commands, Oriented to person, place, time, situation. Cardiovascular: No deficits noted. Denies nausea, vomiting. Respiratory: No deficits noted. Airway is patent Respiratory effort is even, unlabored, Respiratory pattern is regular, symmetrical. GI: No deficits noted. No signs and/or symptoms were reported involving the gastrointestinal system. : No deficits noted. No signs and/or symptoms were reported regarding the genitourinary system. Derm: No deficits noted. No signs and/or symptoms reported regarding the dermatologic system. Musculoskeletal: No deficits noted. No signs and/or symptoms reported regarding the musculoskeletal system. 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 - Infectious Disease History:: Denies. - Family history:: not pertinent. - Social history:: Smoking status: unknown. Screenin:22 [facility] ED Fall Risk Assessment (Adult) History of falling in the last 3 months, ss12 including since admission No falls in past 3 months (0 pts) Confusion or Disorientation No (0 pts) Intoxicated or Sedated No (0 pts) Impaired Gait No (0 pts) Mobility Assist Device Used No (0 pt) Altered Elimination No (0 pt) Score/Fall Risk Level 0 - 2 = Low Risk Oriented to surroundings, Maintained a safe environment, Educated pt \\T\\ family on fall prevention, incl call for assistance when getting out of bed, Assessed \\T\\ reinforced patient's understanding of fall precautions. Abuse screen:. Nutritional screening: No deficits noted. Tuberculosis screening: No symptoms or risk factors identified. Assessment: 00:58 Reassessment: see the triage assessment. ss12 02:02 Reassessment: Patient appears in no apparent distress at this time. Respiratory: No ss12 deficits noted. Airway is patent Respiratory effort is even, unlabored, Respiratory pattern is regular, symmetrical. 02:52 Reassessment: Patient appears in no apparent distress at this time. Reassessment: pt ss12 lying in bed with eyes closed. Respiratory: No deficits noted. Airway is patent Respiratory effort is even, unlabored, Respiratory pattern is regular, symmetrical. 03:54 Reassessment: Patient appears in no apparent distress at this time. pt lying in bed ss12 with eyes closed. Respiratory: No deficits noted. Airway is patent Respiratory effort is even, unlabored, Respiratory pattern is regular, symmetrical. 09:15 General: Appears unkempt, Behavior is calm, cooperative, appropriate for age. General: ll1 Reports "same" when asked if he has had any suicidal or homicidal thoughts. Pain: Denies pain. Neuro: No deficits noted. Cardiovascular: No deficits noted. 10:15 General: Appears unkempt, Behavior is calm, cooperative, appropriate for age, Reports me1 SI. Denies HI. Pain: Denies pain. Neuro: No deficits noted. Level of Consciousness is awake, alert, obeys commands, Oriented to person, place, time, situation, Appropriate for age. Cardiovascular: Patient's skin is warm and dry. Respiratory: Airway is patent Respiratory effort is even, unlabored, Respiratory pattern is regular, symmetrical. GI: No signs and/or symptoms were reported involving the gastrointestinal system. : No signs and/or symptoms were reported regarding the genitourinary system. EENT: No signs and/or symptoms were reported regarding the EENT system. Derm: Skin is intact, is healthy with good turgor, Skin is normal. Musculoskeletal: No signs and/or symptoms reported regarding the musculoskeletal system. Circulation, motion, and sensation intact. Range of motion: intact in all extremities. 12:00 Reassessment: Patient is alert, oriented x 3, equal unlabored respirations, skin me1 warm/dry/pink. Sitting up, eating and watching tv. Cooperative. No s/s of distress. 14:00 Reassessment: Patient and/or family updated on plan of care and expected duration. Pain me1 level reassessed. Sleeping, eyes closed, respirations even and unlabored. 16:00 Reassessment: Patient and/or family updated on plan of care and expected duration. Pain me1 level reassessed. Sleeping, Eyes closed, respirations even and unlabored. 18:00 Reassessment: Patient and/or family updated on plan of care and expected duration. Pain me1 level reassessed. Sleeping, eyes closed, respirations even and unlabored. 19:00 Reassessment: Patient appears in no apparent distress at this time. Patient and/or ss12 family updated on plan of care and expected duration. Pain level reassessed. 19:00 Reassessment: patient resting in bed with eyes closed. Respiratory: No deficits noted. ss12 Airway is patent Respiratory effort is even, unlabored, Respiratory pattern is regular, symmetrical. 09/28 01:23 Reassessment: Patient appears in no apparent distress at this time. Patient and/or ss12 family updated on plan of care and expected duration. Pain level reassessed. Patient is alert, oriented x 3, equal unlabored respirations, skin warm/dry/pink. 06:28 Reassessment: Patient appears in no apparent distress at this time. Patient and/or ss12 family updated on plan of care and expected duration. Pain level reassessed. Patient is alert, oriented x 3, equal unlabored respirations, skin warm/dry/pink. 07:00 Reassessment: RECD REPORT FROM GUILLERMINA MOORE. 44YO WM P/W SI AND INDIGENCY. bp 19:00 General: Appears in no apparent distress. comfortable, Behavior is anxious. Pain: ss12 Denies pain. Neuro: No deficits noted. Level of Consciousness is awake, alert, obeys commands, Oriented to person, place, time, situation. Cardiovascular: No deficits noted. Respiratory: No deficits noted. Airway is patent Respiratory effort is even, unlabored, Respiratory pattern is regular, symmetrical. GI: No deficits noted. : No deficits noted. Urine is clear. EENT: No deficits noted. No signs and/or symptoms were reported regarding the EENT system. Derm: No deficits noted. Skin is intact, is healthy with good turgor, Skin is normal. Musculoskeletal: No deficits noted. No signs and/or symptoms reported regarding the musculoskeletal system. 21:10 Reassessment: Patient appears in no apparent distress at this time. Patient and/or ss12 family updated on plan of care and expected duration. Pain level reassessed. Patient is alert, oriented x 3, equal unlabored respirations, skin warm/dry/pink. 0811 06:07 Reassessment: Patient appears in no apparent distress at this time. Patient and/or ss12 family updated on plan of care and expected duration. Pain level reassessed. Patient is alert, oriented x 3, equal unlabored respirations, skin warm/dry/pink. 07:30 General: Appears in no apparent distress. comfortable, Behavior is calm, cooperative. iw General: pt reports continued SI with plan to walk out in traffic, is agreeable to transfer to psych facility , no needs at this time , pt lying on mattress on floor, per his request . Pain: Denies pain. Neuro: Level of Consciousness is awake, alert, obeys commands, Oriented to person, place, time, situation, Moves all extremities. Full function. Cardiovascular: Patient's skin is warm and dry. Respiratory: Respiratory effort is even, unlabored, Respiratory pattern is regular, symmetrical. Derm: Skin is intact, is healthy with good turgor. Musculoskeletal: Range of motion: intact in all extremities. 12:00 Reassessment: Patient appears in no apparent distress at this time. lunch tray iw provided, pt has not eaten his breakfast but does not want me to throw it away, states "i'm homeless, i'm gonna eat that food, I'm just sleepy right now, please don't throw it away, I still want it ". 16:45 Reassessment: report given to Avis at [facility]. iw 17:25 Reassessment: pt walked out of dept, states "i need a cigarette, I'm not going iw anywhere, y'all are discriminating against me, I wanna speak to ", Dr. Oneal notified , verbal order for Ativan 1 mg IM , given now , pt still repeating himself, refuses to sign transfer consent , states he does not want to be transferred to [facility] he wants to go to [facility]. 17:45 Reassessment: ER director at [facility] to speak with pt. 17:54 Reassessment: Dr. Oneal speaking with pt. iw 18:00 Reassessment: pt at door, rambling about wanting a steak before he leaves, he wants his iw belongings to make sure it is all there. 18:22 Reassessment: pt screaming that he wants an EKG, mental health technician at [facility] to complete EKG. iw 18:45 Reassessment: Senior Pharmacy Technician at bedside to draw troponin and administer repeat Ativan iw IM. 19:12 Reassessment: Patient and/or family updated on plan of care and expected duration. Pain tb4 level reassessed. Patient is alert, oriented x 3, equal unlabored respirations, skin warm/dry/pink. Patient in room sitting on a mattress eating crackers, alert and oriented x3, denies pain 0/10, denies SI and HI. Patient denies pain at this time. Patient states feeling better. General: Appears in no apparent distress. comfortable, Behavior is calm, cooperative. Pain: Denies pain. Neuro: No deficits noted. Level of Consciousness is awake, alert, obeys commands, Oriented to person, place, time, situation, Moves all extremities. Full function Gait is steady, Facial symmetry appears normal. Respiratory: No deficits noted. Airway is patent Respiratory effort is even, unlabored, Respiratory pattern is regular, symmetrical. GI: No deficits noted. No signs and/or symptoms were reported involving the gastrointestinal system. : No deficits noted. No signs and/or symptoms were reported regarding the genitourinary system. Derm: No deficits noted. Skin is intact, is healthy with good turgor, Skin is normal. Musculoskeletal: No deficits noted. No signs and/or symptoms reported regarding the musculoskeletal system. Psych: 09/27 01:00 [place] Suicide Severity Screening: In the past month, have you wished you were ss12 or wished you could go to sleep and not wake up? Patient responds "yes." Based off the client's responses additional C-SSRS screening is required. "In the past month, have you actually had any thoughts of killing yourself?" Patient responds "yes." Based off the client's response additional [place] suicide severity screening questions to be further documented on paper forms. "In your lifetime, have you ever done anything, started to do anything, or prepared to do anything to end your life?" unable to determine. patient not cooperative to answer. Subjective: Patient's mood is sad, irritable. Objective: Patient is uncooperative, Speech is rambling, rapid. Interventions: Removed personal items and placed in bag. Patient placed in hospital gown. Searched person for dangerous items. Belonging list filled out. Safety Checks: Personal items have been removed. Door is open. No visitors are present at this time. unable to obtain information. pt uncooperative. Commitment: Patient will be an involuntary commitment. 02:00 Safety Checks: Door is open. No visitors are present at this time. sitter present to 12 monitor the patient. 03:00 Safety Checks: Door is open. No visitors are present at this time. sitter present to 12 monitor the patient. 04:10 Safety Checks: Door is open. No visitors are present at this time. sitter present ss12 monitoring the patient. 19:00 [place] Suicide Severity Screening: In the past month, have you wished you were ss12 or wished you could go to sleep and not wake up? Patient responds "yes." "In the past month, have you actually had any thoughts of killing yourself?" Patient responds "yes." "In your lifetime, have you ever done anything, started to do anything, or prepared to do anything to end your life?" Patient responds "yes." Patient reports suicidal intent occurred greater than 3 months prior. Subjective: Patient's mood is hopeless. Objective: Patient is cooperative, Speech is rambling, rapid. Safety Checks: Door is open. No visitors are present at this time. sitter present. 20:05 Safety Checks: Door is open. No visitors are present at this time. Sitter present 12 monitoring the patient. 09/28 02:32 Safety Checks: Door is open. No visitors are present at this time. sitter present ss12 monitoring the patient. 19:00 [place] Suicide Severity Screening: In the past month, have you wished you were ss12 or wished you could go to sleep and not wake up? Patient responds "No." "In the past month, have you actually had any thoughts of killing yourself?" Patient responds "no." "In your lifetime, have you ever done anything, started to do anything, or prepared to do anything to end your life?" Patient responds "yes." Patient reports suicidal intent occurred greater than 3 months prior. Subjective: Patient's mood is sad, due to loss of his dog. Objective: Patient is cooperative, Speech is rambling, rapid. Interventions: pt in hospital blue scrubs. Safety Checks: Door is open. No visitors are present at this time. sitter present. 09/29 06:07 Safety Checks: Door is open. No visitors are present at this time. sitter present. [facility] 06:08 Safety Checks: Door is open. No visitors are present at this time. sitter present. [facility] Vital Signs: 09/27 00:58 Resp 24; ss12 02:18 Resp 16; Pulse Ox 90% on R/A; 12 02:21 Pulse Ox 96% on 2 lpm NC; [facility] 03:00 BP 106 / 64; Pulse 101; Resp 16 S; Pulse Ox 97% on 2 lpm NC; [facility] 17:45 BP 110 / 84; Pulse 84; Resp 16; Pulse Ox 100% on R/A; Pain 0/10; em1 08 06:27 BP 116 / 79; Pulse 90; Resp 16 S; Temp 97.9(O); Pulse Ox 100% on R/A; ss12 11:20 BP 120 / 84; Pulse 67; Resp 16; Pulse Ox 100% on R/A; Pain 0/10; em1 09/29 06:42 BP 127 / 74; Pulse 60; Resp 16; Temp 98.5(O); Pulse Ox 98% on R/A; rk3 14:51 BP 125 / 66; Pulse 65; Resp 18; Temp 97.1; Pulse Ox 98% on R/A; Pain 0/10; iw 18:19 BP 164 / 78; Pulse 97; oh1 19:15 BP 125 / 74; Pulse 88; Resp 20; Temp 98.3; Pulse Ox 97% on R/A; Pain 0/10; tb4 17:45 Pain Scale: Adult em1 11:20 Pain Scale: Adult em1 14:51 Pain Scale: Adult iw 19:15 Pain Scale: Adult tb4 [place] Coma Score: 09/27 04:30 Eye Response: spontaneous(4). Motor Response: obeys commands(6). Verbal Response: sp4 confused(4). Total: 14. ED Course: 00:57 Patient arrived in ED. ss12 00:57 Mac Watts RN is Primary Nurse. ss12 01:03 Madan Culp MD is Attending Physician. sp4 02:00 Pulse ox on. ss12 02:15 Inserted saline lock: 20 gauge in right hand, using aseptic technique. Blood collected. ss12 Flushed with 10 mL NS. 02:20 Initial lab(s) drawn, by ED staff, sent to lab. ts3 02:22 Arm band placed on right wrist. ss12 02:23 Triage completed. ss12 02:23 No provider procedures requiring assistance completed. ss12 02:23 Patient has correct armband on for positive identification. Provided Education on: plan ss12 of care. 04:02 Consent for blood and/or blood product transfusion. ss12 07:00 Report received from night time nanny RN. ll1 15:15 1515 faxed clinical's for possible admission. sp 16:42 [facility] called denied patient for admission. sp 09/28 00:48 Attending Physician role handed off by Madan Culp MD ms3 00:48 Anoop Collins DO is Attending Physician. ms3 08:31 Primary Nurse role handed off by Mac Watts RN bp 08:31 Justus Parada, RN is Primary Nurse. bp 19:37 UDS Sent. ss12 20:14 initiated screening with [facility]. kmf 20:16 Door closed. Noise minimized. Lights dimmed. Warm blanket given. Pillow given. rk3 23:40 PO fluids given. sa1 09/29 08:40 Attending Physician role handed off by Anoop Collins DO rama 08:40 Bradly Oneal MD is Attending Physician. rama 09:25 Primary Nurse role handed off by Justus Parada, TERESA nh2 09:25 Darío Santos Jr, RN is Primary Nurse. nh2 09:26 Natalee Badillo, TERESA is Primary Nurse. iw 15:10 faxed new vital signs as requested by Hermelinda Fernandes with [facility]. bd 18:04 contacted Avis with [facility], let her know that pt is now involuntary. bd 19:15 Patient did not have IV access during this emergency room visit. tb4 19:30 Robby Jennings MD is Referral Physician. rama Administered Medications: 09/27 01:13 Drug: Geodon IM 40 mg IM once Route: IM; Site: left gluteus; kd3 02:00 Follow up: Response: No adverse reaction; Anxiety decreased ss12 01:14 Drug: LORazepam IM 2 mg IM once Route: IM; Site: right gluteus; kd3 02:00 Follow up: Response: No adverse reaction; Anxiety decreased ss12 02:46 Drug: NS 0.9% IV 1000 ml IV at 1000 ml once; to be given as a bolus over 60 minutes kd3 Route: IV; Rate: 1000 ml; Site: right hand; 03:50 Follow up: IV Status: Completed infusion; IV Intake: 1000ml ss12 09/28 21:20 Drug: LORazepam PO 1 mg PO once Route: PO; ss12 23:00 Follow up: Response: No adverse reaction; Anxiety decreased ss12 09/29 17:27 Drug: LORazepam IM 1 mg IM once Route: IM; Site: left gluteus; iw 18:24 Drug: Nicoderm CQ Transdermal Patch 21 mg/24 hr 21 mg Transdermal once Route: iw Transdermal; Site: affected area; 20:03 Follow up: Response: No adverse reaction tb4 18:50 Drug: LORazepam IM 2 mg IM once Route: IM; Site: right ventrogluteal; iw 20:03 Follow up: Response: No adverse reaction; Anxiety decreased tb4 Medication: 09/27 02:23 VIS not applicable for this client. ss12 Intake: 03:50 IV: 1000ml; Total: 1000ml. ss12 Outcome: 09/28 00:50 ER care complete, transfer ordered by MD. ms3 09/29 19:31 Discharge ordered by MD. [facility] 20:02 Discharged to home ambulatory, tb4 20:02 Condition: stable 20:02 Discharge instructions given to patient, Instructed on discharge instructions, follow up and referral plans. Demonstrated understanding of instructions, follow-up care, 20:04 Patient left the ED. tb4 Signatures: Lupe Wilson Corey, MD MD cha Pinkerton, Shawna sp Williams, Irene, RN RN iw Earl, Austin em1 Justus Parada, RN RN Mary Breen, RN RN ll1 Anoop Collins DO DO ms3 Caron Jeffrey, RN RN 3 Madan Culp MD MD sp4 Rachele Ling, RN RN me1 Junie Zepeda km Arnaud, sa1 Maria G Patel oh1 Darío Santos Jr, RN RN nh2 Jacquelyn Cedeño rk3 Cyndy Masters RN RN tb4 Sayra Sheikh 3 Mac Watts RN RN ss12 Corrections: (The following items were deleted from the chart) 09/27 02:03 02:02 Reassessment: Patient appears in no apparent distress at this time. Patient ss12 and/or family updated on plan of care and expected duration. Pain level reassessed. Patient is alert, oriented x 3, equal unlabored respirations, skin warm/dry/pink. 12 09/28 20:22 19:00 Reassessment: Patient appears in no apparent distress at this time. Patient ss12 and/or family updated on plan of care and expected duration. Pain level reassessed. Patient is alert, oriented x 3, equal unlabored respirations, skin warm/dry/pink. 12 09/29 06:44 06:42 BP 127 / 74; Pulse 60bpm; Resp 16bpm; Pulse Ox 98%; Temp 98.5F; rk3 rk3 :30 General: Appears in no apparent distress. comfortable, Behavior is calm, iw cooperative, nh2 :30 Pain: Denies pain. : Neuro: Level of Consciousness is awake, alert, obeys commands, Oriented to iw person, place, time, situation, Moves all extremities. Full function Respiratory: Respiratory effort is even, unlabored, Respiratory pattern is iw regular, symmetrical, Cardiovascular: Patient's skin is warm and dry. Derm: Skin is intact, is healthy with good turgor, Musculoskeletal: Range of motion: intact in all extremities, : General: pt reports continued SI with plan to walk out in traffic, is agreeable iw to transfer to psych facility , no needs at this time , pt lying on mattress on floor, per his request . nh2 14:51 13:09 BP 125 / 66; Pulse 53bpm; Pulse Ox 88%; Temp 96.3F; oh1 iw 14:52 14:51 BP 125 / 66; Pulse 65bpm; Resp 18bpm; Pulse Ox 88%; Temp 97.1F; Pain 0/10, Adult; iw iw
[2024-09-28] MEDS ORDERED: NICOTINE 21 MG/PAT TD ONE (12:21)
[2024-09-28 19:58] LABS: METHAMPHETAM NEGATIVE (NEGATIVE); THC Cannibis POSITIVE (NEGATIVE)
[2024-09-28] MEDS ORDERED: LORAZEPAM 1 MG TABLET ONE (21:19)
[2024-09-29] MEDS ORDERED: LORazepam 2 MG/ML VIAL ONE ×2 (17:21→18:41)
[2024-09-29] MEDS ORDERED: NICOTINE 21 MG/PAT TD ONE (17:41)
[2024-09-29 20:55] VITALS: BP 125/74; TEMP 98.3; O2SAT 97
== END 2024-09-29 20:04 | disposition home or self-care (01) ==
LOC: ER 00:50
DX: F31.9 Bipolar disorder, unspecified (principal); E87.6 Hypokalemia
CPT/HCPCS: 36415; 80048; 80076; 80143; 80179; 82077; 82550; 85025; 85610; 85730; 93005; 96360; 96372; 99285; J7030